=== PATIENT | female | born 1940 | race Caucasian/White ===

== ENCOUNTER → 2016-04-08 | Outpatient (CLI) | payer BC, OTHER ==
[~2016-04-08] MED LIST: ATOR-22 PO; SYN75 PO
[2016-04-09 11:23] LABS: URINE APPEARANCE CLEAR (CLEAR); URINE BILIRUBIN NEG (NEG); URINE COLOR YELLOW; URINE EPITHELIAL CELL AUTO 20-30 /lpf (0-5); URINE NITRITE NEG (NEG); URINE PH 7.5 (4.5-7.5); UROBILINOGEN NEG (NEG)
[2016-04-09 11:34] LABS: MANUAL MICROSCOPIC REQUIRED? NO; REVIEW REQ? NO
== END | disposition home or self-care (01) ==
LOC: C.LABSPEC 10:47
PROVIDERS: ATTEND Nurse Practitioner Adult Health
DX: R35.0 Frequency of micturition (principal)

== ENCOUNTER → 2016-04-28 | Outpatient (CLI) | payer BC ==
--- NOTE | 2016-04-28 22:15 | MYOCARDIAL PERFUSION SCAN ---
ONE-DAY NUCLEAR MEDICINE TECHNETIUM-99M CARDIOLITE MYOCARDIAL PERFUSION SCAN REQUESTING PHYSICIAN: Dr. Rosales. INDICATION: Chest pain. COMPARISON: None. STRESS ECG: Resting EKG showed normal sinus rhythm with no ST abnormalities. The patient exercised for 9 minutes, achieving 96% of maximum predicted heart rate and 10.1 METs. Her blood pressure eric from 140/84-182/72. EKG showed no stress induced ST abnormalities and there were no stress induced arrhythmias. TECHNIQUE: For the stress portion of the study, 31.2 mCi of technetium-99m Cardiolite IV was injected at 9:25 a.m. on 04/28/2016. Fifteen minutes following the injection, imaging of the heart was performed in multiple projections. For the rest portion of the study, 10.9 mCi of technetium-99m Cardiolite was injected IV at 7:30 a.m. One hour following the injection, imaging of the heart was performed in the same projections. FINDINGS: Raw images were reviewed in detail. This was a good technical quality study. There was minimal vertical motion on the rest images. Otherwise, there was no significant gut uptake impairing imaging borders. There was no other pathologic extracardiac uptake. The short axis, vertical long axis, and horizontal long axis images were reviewed in detail. There was normal myocardial perfusion on both stress and rest images with no significant defects. LV function was hyperdynamic with an estimated EF of 91%. LV cavity size was small with end-diastolic volume of 38 mL. There were no regional wall motion abnormalities. IMPRESSION: 1. Negative exercise Cardiolite myocardial perfusion scan for ischemia at 96% of maximum predicted heart rate. No resting perfusion defects. 2. Negative stress EKG. No stress induced arrhythmias. 3. Above average functional capacity. Exercised for 9 minutes, achieving 10 METs with normal hemodynamic response. 4. Small left ventricular cavity size with normal left ventricular function and no regional wall motion abnormalities. [facility]
== END | disposition home or self-care (01) ==
LOC: C.NUCL 06:19
PROVIDERS: ATTEND Internal Medicine Cardiovascular Disease
DX: R07.9 Chest pain, unspecified (principal); E78.00 Pure hypercholesterolemia, unspecified; I25.10 Atherosclerotic heart disease of native coronary artery without angina pectoris

== ENCOUNTER → 2016-06-01 | Outpatient (CLI) | payer BC ==
--- NOTE | 2016-06-01 13:48 | MAMMOGRAPHY REPORT ---
BILATERAL DIGITAL DIAGNOSTIC MAMMOGRAM TOMOSYNTHESIS WITH CAD AND TARGETED LEFT ULTRASOUND: 06/01/2016 CLINICAL HISTORY: 75-year-old woman presents for follow-up in the left breast for a benign appearing solid mass identified in the 2:00 left breast on ultrasound. Also annual bilateral screening mammo gram. History of prior benign right breast biopsy. TECHNIQUE: Breast tomosynthesis in addition to standard 2D mammography was performed. Current study was also evaluated with a Computer Aided Detection (CAD) system. COMPARISON: Comparison is made to exams dated: 12/03/2015 mammogram, 12/03/2015 ultrasound, 06/04/2015 ma mmogram, and 04/10/2013 mammogram - [facility]. BREAST COMPOSITION: There are scattered areas of fibroglandular density in both breasts. FINDINGS: The breast parenchymal pattern is similar to prior exams. A previously observed asymmetry in the superior left breast is less conspicuous on the current mammogram, confirming benignity. Th ere is a stable metallic biopsy marker in the upper outer anterior right breast and stable nodularit y in the superior right breast that appears similar dating back to at least 2009. No new suspicious mass, architectural distortion or cluster of microcalcifications is seen bilaterally. Targeted ultrasound was performed in the 2:00 periareolar left breast to reevaluate the probably yuliet ign isoechoic to slightly hypoechoic solid mass without definite mammographic correlate. It is agai n identified measuring 4.5 x 1.8 x 4.6 mm and is unchanged dating back to 06/04/2015. This could re present a conspicuous fat lobule, benign mass such as a fibroadenoma or stromal fibrosis. Another 1 2 month follow-up targeted ultrasound is recommend to ensure at least 2 years of stability to confir m benignity. There is another small area of probable dense fibroglandular tissue in the adjacent 3: 00 periareolar left breast which is incidentally identified. IMPRESSION: ACR-BI-RADS CATEGORY 3: PROBABLY BENIGN, TARGETED ULTRASOUND ACR-BI-RADS CATEGORY 3: [place] OBABLY BENIGN 1. Stable bilateral mammograms, without mammographic evidence of malignancy. 2. Stable benign-appearing solid mass versus normal fat lobule in the 2:00 periareolar left breast on ultrasound. Another 12 month follow-up diagnostic mammogram and repeat targeted left breast ultr asound is recommended to ensure at least 2 years of stability to confirm benignity. These results and recommendations were discussed with the patient at the time of the exam. She tent atively scheduled the 12 month follow up appointment prior to leaving our department. Approximately 10% of breast cancers are not detected with mammography. A negative mammographic repor t should not delay biopsy if a clinically suggestive mass is present. Yanci Benson M.D. ay/:06/01/2016 13:23:53 Wood Inspector: Nikhil QUINTANILLA(Lazara)(Sharath), [facility] letter sent: Follow Up Recommended 3 BI-RADS Code: ACR-BI-RADS Category 3: Probably Benign Ultrasound BI-RADS: ACR-BI-RADS Category 3: P robably Benign
== END | disposition home or self-care (01) ==
LOC: C.MAMM 08:48
PROVIDERS: ATTEND Family Medicine
DX: N63 Unspecified lump in breast (principal)

== ENCOUNTER → 2016-10-14 | Outpatient (CLI) | payer BC ==
--- NOTE | 2016-10-14 13:25 | DIAGNOSTIC IMAGING REPORT ---
RIGHT HIP UNILATERAL 2 VIEWS HISTORY: 76 years Female M79.604 Pain of right lower extremityPt with worsening RLE pain, Right COMPARISON: Pelvis and left hip radiographs 07/08/2015 TECHNIQUE: Frontal and frog-leg views of the right hip FINDINGS: There is moderate concentric joint space loss about the right hip without significant marginal spurring. Prominent subcortical cystic changes are noted about the femoral head. There is only minimal spurring of the medial femoral head neck junction. There is no acute fracture or dislocation. Soft tissues are unremarkable. IMPRESSION: 1. No acute fracture or dislocation. 2. Moderate concentric joint space loss with subcortical cystic changes throughout the right femoral head. Although this could reflect osteoarthritis, inflammatory arthropathy may have a similar appearance. The above report was generated using voice recognition software. It may contain grammatical, syntax or spelling errors. Electronically signed by: Vazquez Wilkes M.D. 10/14/2016 1:24 PM Dictated Date/Time: 10/14/2016 1:20 PM
--- NOTE | 2016-10-14 13:27 | DIAGNOSTIC IMAGING REPORT ---
L-SPINE MIN 4 VIEWS ROUTINE CLINICAL HISTORY: 76 years-old Female presenting with pain and right lower extremity. TECHNIQUE: Frontal, bilateral oblique, and lateral views of the lumbosacral spine with coned-down lateral view of the lumbosacral junction were obtained. COMPARISON: None. FINDINGS: Grade 1 anterolisthesis of L4 on L5. Anterior vertebral body height loss at L1 with an anterior height of 26 mm in comparison to the posterior height of 35 mm. Intervertebral disc height loss at L1-2 and L2-3 with associated vacuum disc phenomenon. Scoliotic curvature of the lumbar spine. Allowing for the scoliotic curvature of the spine, no significant osseous neural foraminal narrowing. Total right hip arthroplasty. Moderate stool burden throughout the colon. Atherosclerosis No gross pneumoperitoneum. IMPRESSION: 1. Multilevel degenerative changes, including anterolisthesis of L4 on L5. 2. Anterior vertebral body height loss of L1 may indicate compression deformity, age indeterminate. Correlate for point tenderness. Electronically signed by: Praful Ceron M.D. 10/14/2016 1:25 PM Dictated Date/Time: 10/14/2016 1:21 PM
== END | disposition home or self-care (01) ==
LOC: C.RAD1850 13:01
PROVIDERS: ATTEND Family Medicine
DX: M79.604 Pain in right leg (principal)

== ENCOUNTER → 2016-12-15 | Outpatient (CLI) | payer BC | END | disposition home or self-care (01) | LOC: C.MAMM 12:59 | PROVIDERS: ATTEND Family Medicine | DX: M81.0 Age-related osteoporosis without current pathological fracture (principal); S32.000A Wedge compression fracture of unspecified lumbar vertebra, initial encounter for closed fracture; X58.XXXA Exposure to other specified factors, initial encounter ==

== ENCOUNTER → 2017-02-08 | Outpatient (CLI) | payer BC | END | disposition home or self-care (01) | LOC: C.RDSM 11:59 | PROVIDERS: ATTEND Physical Medicine & Rehabilitation Sports Medicine | DX: M25.552 Pain in left hip (principal); Z96.642 Presence of left artificial hip joint ==

== ENCOUNTER 2017-02-21 12:05 | Emergency (ER) | payer BC ==
[~2017-02-21] VITALS: Ht 162.6 cm; Wt 61.6 kg
[2017-02-21 12:07] VITALS: TEMP 36.7; Ht 162.6 cm; Wt 61.6 kg
[2017-02-21] MEDS ORDERED: DEXAMETHASONE **PF** INJ 10 MG/ML VIAL PO STA (12:21)
[2017-02-21] MEDS ORDERED: MIRT15TA3 PO (12:21)
--- NOTE | 2017-02-21 12:21 | EMERGENCY ROOM VISIT NOTE ---
History Report prepared by Moshe: Mikey Girard Under the Supervision of: Dr. Joselito Dozier M.D. 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 Patient has been suffering a cold and cough for the past few days. She has not taken anything for her hives. Positive fevers, chills, cough, congestion. Negative travel, changes in medication, clothes, soaps, detergent, deodorant, recent shaving, alcohol use, tobacco use, drug use. Source of History: patient Onset: this morning Position: other (global) Quality: other (itchy hives) Timing: constant Associated Symptoms: + fevers, + chills, + cough Note: Associated symptoms: congestion Denies: travel, changes in medication, clothes, soaps, detergent, deodorant, recent shaving Review of Systems See HPI for pertinent positives and negatives. A total of ten systems were reviewed and were otherwise negative. Past Medical & Surgical Medical Problems: (1) DJD (degenerative joint disease) of hip (2) Edema (3) Edema (4) Heart disease (5) High cholesterol (6) Osteoporosis Surgical Problems: (1) History of tonsillectomy (2) Status post left hip replacement Family History Diabetes mellitus Social History Smoking Status: Never Smoker Smokeless Tobacco Use: No Alcohol Use: none Drug Use: none Marital Status: Housing Status: lives with family Occupation Status: employed Current/Historical Medications Scheduled Atorvastatin (Lipitor), 20 MG PO DAILY Famotidine (Pepcid), 40 MG PO QD Levothyroxine Sodium (Synthroid), 75 MCG PO DAILY Mirtazapine (Remeron), 15 MG PO HS Prednisone (Prednisone), 50 MG PO DAILY Allergies Coded Allergies: Sulfa Antibiotics (Verified Allergy, Mild, HIVES, 04/12/15) Physical Exam Vital Signs Date Time Temp Pulse Resp B/P (MAP) Pulse Ox O2 Delivery O2 Flow Rate FiO2 02/21/17 14:08 76 16 154/78 97 02/21/17 13:34 76 16 154/78 97 Room Air 02/21/17 12:07 36.7 85 18 156/75 93 Room Air Physical Exam GENERAL: Awake, alert, well-appearing, NAD HENT: Normocephalic, atraumatic. Pharyngeal erythema. No postpharyngeal swelling. no tonsillar or uvular deviation. EYES: Normal conjunctiva. Sclera non-icteric. NECK: Supple. No nuchal rigidity. FROM. RESPIRATORY: CTAB, no rhonchi, wheezing, crackles CARDIAC: RRR, no MRG ABDOMEN: Soft, NTND, BS+ MSK: No chest wall TTP, no LE edema NEURO: GCS 15, CN 2-12 intact, moves all 4s on command SKIN: No jaundice noted. Several blanching wheel like lesions to the bilateral medial thigh and in the flexion portion of the elbow, no drainage or petechiae. Medical Decision & Procedures ER Provider Diagnostic Interpretation: X-ray: Per my interpretation, radiologist review. CHEST ONE VIEW PORTABLE HISTORY: cough COMPARISON: Chest 05/19/2013. FINDINGS: The lungs are hyperexpanded with apical predominant emphysematous changes. Mild interstitial thickening at the lung bases is likely due to vascular crowding from the emphysema. The lungs are otherwise clear. No pleural effusions. No pneumothorax. IMPRESSION: Emphysema. No acute process within the chest. Electronically signed by: Triston Lacy M.D. 02/21/2017 12:58 PM Dictated Date/Time: 02/21/2017 12:54 PM Medications Administered Medications (Trade) Dose Ordered Sig/Briana Route Start Time Stop Time Status Last Admin Dose Admin Dexamethasone Sodium Phosphate (Dexamethasone Inj Pf) 10 mg ONE STAT PO 02/21/17 12:21 02/21/17 12:22 DC 02/21/17 12:34 10 MG Diphenhydramine HCl (Benadryl Cap) 25 mg NOW ONCE PO 02/21/17 12:30 02/21/17 12:31 DC 02/21/17 12:34 25 MG Famotidine (Pepcid Tab) 20 mg NOW ONCE PO 02/21/17 12:30 02/21/17 12:31 DC 02/21/17 12:34 20 MG ED Course 1211: The patient was evaluated in room C07. A complete history and physical exam was performed. 1347: I reevaluated the patient. Discussed results and discharge instructions: she verbalized understanding and agreement. The patient is ready for discharge. Medical Decision The patient is a 76 year old white female with a past medical history of DJD, CAD, HLD, resolved chronic hives who presents to the ED with a cc of constant, itchy, hives beginning this morning. Etiologies such as allergic reaction, anaphylaxis, urticaria, Arroyo-Romulo syndrome, toxic epidermal necrolysis, erythema multiforme, cellulitis, as well as others were entertained. Patient was seen and evaluated the bedside. Patient has had some URI-type symptoms for the last 4-5 days. Patient has had a cough but it is nonproductive and dry. Patient states that she called the on-call physician who referred them here in order take a look at the rash. Patient states no changes a recent creams, detergents, soaps, clothes, or foods. Patient is very well-appearing otherwise. Patient is afebrile vital signs are stable. Patient' s temp posterior pharynx is clear. Patient has no stridor and in the lungs are clear to auscultation bilaterally. Patient does have some blanching pruritic rash to the inner thighs as well as to the axillary areas. Patient was given medications and did have a chest x-ray that was completed. Patient chest x-ray was clear. Patient did not complain of any shortness of breath or chest pain. Patient had lower extremity swelling. Patient's rash was mildly improved although had not totally resolved. Patient was told to come of keep a watchful eye on that she could apply some cordate as well as Benadryl creams. Patient was also told [id number] and symptomatically control at home for her sore throat/URI symptoms and cough. Patient was told that her chest x-ray was clear. Patient was agreeable with this plan of care. Patient was also told that this may be a viral exanthem given her URI-type symptoms. Patient was given strict follow-up, discharge, and return precautions. All questions were answered. Patient was deemed suitable for outpatient follow-up at this time. Patient agreed with the plan of care and was safely discharged home. Medication Reconcilliation Current Medication List: was personally reviewed by me Blood Pressure Screening Patient's blood pressure: Elevated blood pressure Blood pressure disposition: Referred to PCP Impression Primary Impression: Urticaria Additional Impression: Viral exanthem Scribe Attestation The scribe's documentation has been prepared under my direction and personally reviewed by me in its entirety. I confirm that the note above accurately reflects all work, treatment, procedures, and medical decision making performed by me. Departure Information Dispostion Home / Self-Care Prescriptions Famotidine (PEPCID) 40 Mg Tab 40 MG PO QD for 4 Days, #4 TAB Prov: Joselito Dozier M.D. 02/21/17 Prednisone (PREDNISONE) 50 Mg Tab 50 MG PO DAILY for 4 Days, #4 TAB Prov: Joselito Dozier M.D. 02/21/17 Referrals Tania Brennan MD (PCP) Forms HOME CARE DOCUMENTATION FORM, IMPORTANT VISIT INFORMATION, WORK / SCHOOL INSTRUCTIONS Patient Instructions ED Allergic Reaction General Other, ED Upper Resp Infec No Abx Tx, ED Urticaria , [facility] Additional Instructions Please return to the emergency department if you have worsening or recurrent symptoms not amenable to at-home treatment. Please call for a follow-up appointment with her primary care physician. Please take your medications as prescribed. If you have other concerns and/or complaints please feel free to also call your primary care physician's office or return the ED for further evaluation, management, and treatment. You may take 400 mg Ibuprofen every 6 hours as needed for pain with food for no more than 2 consecutive days. You may take tylenol 650 mg every 6 hours as needed for pain. You may take motrin and tylenol separately or at the same time. Take your medications as prescribed. Consider taking her steroids in the morning. He may apply Cortaid or Benadryl cream. For your upper respiratory type symptoms you may try decongestants, saline sprays, and tea with honey and/ or lemon. He may also try saltwater gargles. If her symptoms do not improve in the next 24-48 hours consider returning to the department or following up with her PCP. You have been examined and treated today on an emergency basis only. This is not a substitute for, or an effort to provide, complete comprehensive medical care. It is impossible to recognize and treat all injuries or illnesses in a single emergency department visit. It is therefore important that you follow up closely with [facility], your PCP, and/or your specialist(s). Call as soon as possible for an appointment. Thank you for your time and consideration. I look forward to speaking with you again soon. Please don't hesitate to call us if you have any questions. Problem Qualifiers
[2017-02-21] MEDS ORDERED: FAMOTIDINE 20 MG TAB PO ONE (12:30)
--- NOTE | 2017-02-21 13:00 | DIAGNOSTIC IMAGING REPORT ---
CHEST ONE VIEW PORTABLE HISTORY: cough COMPARISON: Chest 05/19/2013. FINDINGS: The lungs are hyperexpanded with apical predominant emphysematous changes. Mild interstitial thickening at the lung bases is likely due to vascular crowding from the emphysema. The lungs are otherwise clear. No pleural effusions. No pneumothorax. IMPRESSION: Emphysema. No acute process within the chest. Electronically signed by: Triston Lacy M.D. 02/21/2017 12:58 PM Dictated Date/Time: 02/21/2017 12:54 PM
[2017-02-21] MEDS ORDERED: FAMO40TA6 PO (14:02)
[2017-02-21] MEDS ORDERED: PRED50TA PO (14:02)
[2017-02-21 14:08] VITALS: BP 154/78; PULSE 76; O2SAT 97
== END 2017-02-21 14:09 | disposition home or self-care (01) ==
LOC: C.EDB 12:06 → C.EDC 14:09
DX: L50.9 Urticaria, unspecified (principal); B09 Unspecified viral infection characterized by skin and mucous membrane lesions; E78.5 Hyperlipidemia, unspecified; R40.2412 Glasgow coma scale score 13-15, at arrival to emergency department; R03.0 Elevated blood-pressure reading, without diagnosis of hypertension; Z83.3 Family history of diabetes mellitus

== ENCOUNTER → 2017-06-02 | Outpatient (CLI) | payer BC ==
[~2017-06-02] MED LIST changes: +MIRT15TA3 PO
--- NOTE | 2017-06-03 08:03 | MAMMOGRAPHY REPORT ---
BILATERAL DIGITAL DIAGNOSTIC MAMMOGRAM TOMOSYNTHESIS WITH CAD AND TARGETED LEFT ULTRASOUND: 06/02/2017 CLINICAL HISTORY: 76-year-old woman presents at time of annual exam and also close follow-up of an as ymmetry in the superior right breast on the MLO view. Reassess prominent fat lobule versus benign-ap pearing mass in the 2:00 periareolar left breast on ultrasound. TECHNIQUE: Bilateral breast tomosynthesis in addition to standard 2D mammography was performed. Curre nt study was also evaluated with a Computer Aided Detection (CAD) system. COMPARISON: Comparison is made to exams dated: 06/01/2016 mammogram, 06/01/2016 ultrasound, 12/03/2015 [place] mogram, 12/03/2015 ultrasound, 06/04/2015 mammogram, and 05/28/2015 mammogram - [facility] BREAST COMPOSITION: There are scattered areas of fibroglandular density in both breasts. FINDINGS: An asymmetry in the superior, middle one third of the right breast on the MLO view is less prominent comparing to the 2016 mammograms, and also appears very similar to the prior 2013, 2012 and 2011 exams, suggesting normal fibroglandular tissue. There is a stable metallic biopsy marker clip in the upper outer anterior right breast. Minimal vascular calcification in the breasts. No new harriet picious mass, architectural distortion or cluster of microcalcifications is seen. Repeat targeted ultrasound was performed in the 2:00 periareolar left breast. An oval parallel circu mscribed slightly hypoechoic benign-appearing mass versus fat lobule is again identified, measuring 4 .6 x 2.1 x 4.0 mm. This has not significantly changed dating back to at least June 04, 2015, and wit h 2 years of stability is considered benign. IMPRESSION: ACR BI-RADS CATEGORY 2: BENIGN, TARGETED ULTRASOUND ACR BI-RADS CATEGORY 2: BENIGN Less prominent asymmetry in the superior right breast on the MLO view, and stable benign-appearing pr ominent fat lobule versus mass in the 2:00 periareolar left breast on ultrasound. There is no mammog raphic or targeted sonographic evidence of malignancy. Return to annual mammogram screening schedule is recommended. The patient has been verbally notified of the results. Approximately 10% of breast cancers are not detected with mammography. A negative mammographic report should not delay biopsy if a clinically suggestive mass is present. Yanci Benson M.D. ay/:06/02/2017 08:31:59 Psychiatry Teacher: Alice QUINTANILLA(R)(M), [facility] letter sent: Normal 1/2 BI-RADS Code: ACR BI-RADS Category 2: Benign Ultrasound BI-RADS: ACR BI-RADS Category 2: Benign
== END | disposition home or self-care (01) ==
LOC: C.MAMM 08:00
PROVIDERS: ATTEND Family Medicine
DX: R92.8 Other abnormal and inconclusive findings on diagnostic imaging of breast (principal); N64.89 Other specified disorders of breast

== ENCOUNTER → 2017-06-14 | Outpatient (CLI) | payer BC | END | disposition home or self-care (01) | LOC: C.RDSM 07:50 | PROVIDERS: ATTEND Physical Medicine & Rehabilitation Sports Medicine | DX: M16.9 Osteoarthritis of hip, unspecified (principal); Z96.642 Presence of left artificial hip joint ==

== ENCOUNTER → 2017-08-02 | Outpatient (CLI) | payer BC ==
--- NOTE | 2017-08-02 12:23 | DIAGNOSTIC IMAGING REPORT ---
L HUMERUS MIN 2 VIEWS ROUTINE CLINICAL HISTORY: 77 years-old Female presenting with M25.532 left humerus pain, fall injury, twisting injury. TECHNIQUE: Frontal and lateral views of the left humerus were obtained. COMPARISON: None. FINDINGS: Sclerotic rim lesion in the left humeral head with a nonaggressive appearance. Glenohumeral and elbow joints grossly congruent. No acute fracture or malalignment. No advanced degenerative change. No radiographic soft tissue abnormality. No gross evidence of an elbow joint effusion. IMPRESSION: 1. No acute osseous injury. 2. Nonaggressive appearing lesion in the left humeral head. Electronically signed by: Praful Ceron M.D. 08/02/2017 12:21 PM Dictated Date/Time: 08/02/2017 12:19 PM
--- NOTE | 2017-08-02 12:24 | DIAGNOSTIC IMAGING REPORT ---
L WRIST MIN 3 VIEWS ROUTINE CLINICAL HISTORY: 77 years-old Female presenting with M25.532. TECHNIQUE: Frontal, oblique, and lateral views of the left wrist were obtained. COMPARISON: None. FINDINGS: Osteopenia. Cystic changes of the base of the first metacarpal, degenerative in etiology. No acute fracture or malalignment. No advanced degenerative change. No radiographic soft tissue abnormality. IMPRESSION: No acute osseous injury. Electronically signed by: Praful Ceron M.D. 08/02/2017 12:23 PM Dictated Date/Time: 08/02/2017 12:22 PM
== END | disposition home or self-care (01) ==
LOC: C.RADBC 11:46
PROVIDERS: ATTEND Family Medicine
DX: M25.532 Pain in left wrist (principal)

== ENCOUNTER 2018-05-31 06:12 | Inpatient (IN) ==
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
--- NOTE | 2018-05-12 13:45 | PAT Medication Instructions ---
Medication Instructions Date of Service May 12, 2018 Home Medications alendronate 1 tab PO WK cholecalciferol (vitamin D3) 1,000 unit PO BID levothyroxine 50 mcg PO QAM paroxetine HCl [Paxil] 40 mg PO QAM atorvastatin 20 mg PO HS Continue as directed alendronate 1 tab PO WK DO NOT take the morning of surgery cholecalciferol (vitamin D3) 1,000 unit PO BID Take morning of surgery With a small sip of water, OTHERWISE NOTHING TO EAT OR DRINK AFTER MIDNIGHT: levothyroxine 50 mcg PO QAM paroxetine HCl [Paxil] 40 mg PO QAM Take evening before surgery atorvastatin 20 mg PO HS cholecalciferol (vitamin D3) 1,000 unit PO BID Other Notes If you have any questions please call us at [phone] or [phone] or [phone] or [phone]
--- NOTE | 2018-05-12 14:20 | XRay Report ---
XR chest Pre-admission PA/Lat CLINICAL HISTORY: Preoperative chest COMPARISON STUDY: 02/21/2017 FINDINGS: The heart is normal in size. The patient is hyperinflated. There is no focal pulmonary cons olidation. There are no pleural effusions. Bilateral nodular opacities, are felt to relate to bilater al healing rib fractures. Please correlate with any history of trauma.[ IMPRESSION: 1. There are bilateral opacities which likely relate to overlying healing rib fractures. Please corre late with any history of prior trauma 2. No evidence of failure. No evidence of lobar consolidation. 3. Hyperexpansion Electronically signed by: Jose Figueroa M.D. 05/12/2018 2:19 PM
[2018-05-12 14:24] LABS: Basophils # (auto) 0.01 K/uL (0-0.2); Basophils % (auto) 0.2 %; Eosinophils # (auto) 0.14 K/uL (0-0.5); Eosinophils % (auto) 2.3 %; Hematocrit (blood only) 43.6 % (37-47); Hemoglobin 15.2 g/dL (12.0-16.0); Immature Granulocytes # (auto) 0.01 K/uL (0.00-0.02); Immature Granulocytes % (auto) 0.2 %; Lymphocytes # (auto) 2.16 K/uL (1.2-3.4); Lymphocytes % (auto) 35.9 %; Mean Corpuscular Hgb Conc 34.9 g/dL (32-36); Mean Corpuscular Volume 90.8 fL (80-100); Mean Platelet Volume 9.4 fL (7.4-10.4); Monocytes # (auto) 0.76 K/uL (0.11-0.59); Monocytes % (auto) 12.6 %; Neutrophils # (auto) 2.94 K/uL (1.4-6.5); Neutrophils % (auto) 48.8 %; Platelet Count 195 K/uL (130-400); RDW Coefficient of Variation 13.4 % (11.5-14.5); White Blood Count 6.02 K/uL (4.8-10.8)
[2018-05-12 14:35] LABS: Partial Thromboplastin Ratio 1.5; Partial Thromboplastin Time 37.8 Seconds (21.0-31.0); Prothrombin Time 10.5 Seconds (9.0-12.0)
[2018-05-12 15:25] LABS: BUN Creatinine Ratio 24.1 (10-20); Calcium 9.1 mg/dl (8.5-10.1); Est GFR (African American) 85.6; Est GFR (Non-African American) 73.8; Potassium 4.1 mmol/L (3.5-5.1)
[~2018-05-31 06:12] MED LIST changes: +ACETAMINOPHEN 500 MG TAB PO SCH; -ATOR-22 PO; +CEFAZOLIN 2000MG 2,000 MG/15 ML SYR IV SCH; +FAMOTIDINE 20 MG TAB PO SCH; +GABAPENTIN 300 MG PO SCH; +LR 500ML BOLUS, THEN 15ML/HR IV SCH; +LR 60ML/HR IV SCH; -MIRT15TA3 PO; +ROPIVACAINE 0.5% HCL/PF 150 MG, BUPIVACAINE 0.5% MPF 30 ML, EPINEPHrine 30MG/30ML (OR U... INFIL SCH; -SYN75 PO; +TRANEXAMIC ACID 1,000 MG **IV Pre-op IV SCH
[2018-05-31] MEDS ORDERED: BUPIVACAINE 0.5 % 5 MG/1 ML PF 10ML VIAL ONE (06:19)
--- NOTE | 2018-05-31 06:22 | History & Physical Report ---
Date of Service May 31, 2018 Assessment & Plan (1) Osteoarthritis of right hip: We will proceed with a right anterior total hip arthroplasty. I did speak with her veterinary virologist about her lupus anticoagulant disorder. We will place her on Lovenox 40 mg subcu for 4 weeks postoperatively. After the procedure she will be kept overnight at the hospital for postop medical management. She plans to use energy physical therapy upon discharge. Present on Admission?: Yes History of Present Illness Chief Complaint: Primary osteoarthritis of the right hip Primary Care Provider: Tania Brennan MD Soraya is a pleasant 77-year-old female who is been doing with chronic increasing bilateral hip pain. MRI of her hip showed advanced osteoarthritis. She eventually underwent a left total hip arthroplasty about 4 years ago by another provider. She did fairly well with that. Unfortunately she still h aving a lot of right hip pain. X-rays have shown advanced osteoarthritis of the right hip. After failing conservative treatment, she is elected proceed with a right total hip arthroplasty. Allergies Allergy/AdvReac Type Severity Reaction Status Date / Time Sulfa (Sulfonamide Allergy Mild HIVES Verified 05/06/18 14:52 Antibiotics) Home Medications Home Medications Medication Instructions Recorded Confirmed Type alendronate 1 tab PO WK 05/06/18 05/06/18 History cholecalciferol (vitamin D3) 1,000 unit PO BID 05/06/18 05/06/18 History [Vitamin D3] levothyroxine 50 mcg PO QAM 05/06/18 05/06/18 History paroxetine HCl [Paxil] 40 mg PO QAM 05/06/18 05/06/18 History atorvastatin 20 mg PO HS 05/12/18 05/12/18 History Past Med/Surg History Medical History Anxiety CAD (coronary artery disease) "Presumed coronary disease" since positive stress test in 2011. Had a negative nuke stress in 2017 at 96% MPHR. Chronic obstructive pulmonary disease MILD (FOUND ON CXR 4 YEARS AGO) Elevated partial thromboplastin time (PTT) Found on pre-op for ROBI 4 years ago. Per oncology consultation 07/13/16, + lupus anticoagulant. Patient had SAB. Hyperlipidemia Hypothyroidism Lupus anticoagulant disorder Surgeon aware for post-op thrombosis mgmt Osteoarthritis Osteoporosis Surgical History History of cataract surgery RT/LEFT History of colonoscopy History of laparoscopy IUD REMOVAL AFTER PERFORATED UTERUS History of tonsillectomy History of tooth extraction History of total hip arthroplasty LEFT HIP Family History Grandmother (Maternal) Family history of diabetes mellitus Social History Preferred Language: Hebrew Communication Ability: Effective Signal Intelligence Analyst Required: No Beliefs That Will Affect Care: None Current Living Situation: Spouse Other Information That Helps Us Care for You: No Feels Safe at Home: Yes Safety Concerns: Feels Safe At This Time Smoking Status: Never smoker Hx Alcohol Use: No Hx Substance Use: No Review of Systems All systems reviewed & are unremarkable except as noted in HPI & below Physical Exam Constitutional: WD/WN, vitals as above Eyes: PERRL, conjunctivae normal, anicteric sclerae ENMT: external ear and nose normal, oropharynx normal Neck: trachea midline, no thyromegaly Respiratory: normal respiratory effort Cardiovascular: RRR, no murmur, no edema Gastrointestinal (Abdomen): normal bowel sounds, soft, nontender, no hepatosplenomegaly Musculoskeletal: Physical examination of the right hip reveals decreased range of motion with flexion, internal and external rotation. There is significant groin pain with forced internal rotation of the hip his leg lengths are essentially equal. Psychiatric: A+Ox3, euthymic affect Results & Data Diagnostic Findings Radiographs of the right hip and pelvis demonstrate advanced osteoarthritis with joint space narrowing osteophyte formation and [id number] articulation.
--- NOTE | 2018-05-31 06:25 | History & Physical Bridge Note ---
Date of Service May 31, 2018 History & Physical Bridge Note I have examined the patient, reviewed the History & Physical and in the interval since the performance of the History & Physical I have noted the following changes of clinical significance: no changes noted
[2018-05-31] MEDS ORDERED: TRANEXAMIC ACID 1,000 MG **IV Intra-op IV SCH (06:30)
[2018-05-31 06:56] LABS: Partial Thromboplastin Ratio 1.4; Partial Thromboplastin Time 38.2 Seconds (21.0-31.0)
[2018-05-31] MEDS ORDERED: MIDAZOLAM HCL 1 MG/ML 2ML VIAL ONE ×2 (07:29→08:26)
[2018-05-31] MEDS ORDERED: PROPOFOL IV EMULSION 10 MG/ML 20 ML VIAL IV ONE ×2 (07:29→10:42)
[2018-05-31] MEDS ORDERED: fentaNYL citrate 100 MCG/2 ML VIAL ONE (07:29)
[2018-05-31] MEDS ORDERED: POVIDONE-IODINE OP SOLN 30 ML BTL ONE (09:03)
[2018-05-31] MEDS ORDERED: ORTHO JOINT ANESTHETIC ONE (09:03)
[2018-05-31] MEDS ORDERED: ONDANSETRON INJ 2 MG/ML 2 ML VIAL IV PRN ×2 (09:38→13:21)
[2018-05-31] MEDS ORDERED: ATROPINE SULFATE 0.1 MG/ML 10ML SYR IV PRN (09:38)
[2018-05-31] MEDS ORDERED: KETOROLAC 30 MG/ML VIAL IV PRN (09:38)
[2018-05-31] MEDS ORDERED: PHENYLEPHRINE 100MCG/ML 5ML SYR IV PRN (09:38)
[2018-05-31] MEDS ORDERED: ePHEDrine sulfate 50 MG/ML AMP IV PRN (09:38)
[2018-05-31] MEDS ORDERED: HYDROmorphone INJ 1 MG/ML SYRINGE IV PRN (09:38)
--- NOTE | 2018-05-31 12:02 | Operative Report ---
Post Operative Report Pre & Post Diagnosis Operation Date: 05/31/18 08:50 Pre-Op Diagnosis: Right Hip Degenerative Joint Disease Post-Op Diagnosis: Right Hip Degenerative Joint Disease Procedure Operation Date: 05/31/18 08:50 Actual Procedures p cemented right Anterior Total Hip Arthroplasty, Intraop cabling of right femur fracture.(Right) - Dmitriy Reeves DO Surgeon Dmitriy Reeves DO Clutch Specialist Dmitriy Guaman PAC Estimated Blood Loss 300 Findings Consistent with Post-Op Diagnosis Specimens Right femoral head Complications After the final Taperloc implant was impacted in the place I noticed a small fracture in the lateral wall of the femur. I decided to remove the Taperloc stem and cable the fracture. I then placed a long cemented stem for better support and stability. Disposition Disposition: Recovery Room Indications Soraya is a pleasant 77-year-old female who presented my office with chronic increasing right hip and groin pain. X-rays and clinical examination were diagnostic for primary also arthritis of the right hip. After failing conservative treatment, she elected proceed with a right total hip arthroplasty. Description of Procedure Implants used Biomet CRC cemented total hip arthroplasty system with a size 13 x 170 CRC cemented stem, a 46 mm G7 cup with a 25mm screw, an E1 polyethylene liner, a 32 mm ceramic head with a -3.5 neck. Patient arrived at the hospital for the above procedure. They were seen in the preoperative holding area and the operative extremity was identified and signed. They were given a spinal anesthetic. They were given a preoperative antibiotic and TXA. They were taken back To the operating room and laid on the table in the supine position. The leg was brought out through a Puristst leg positioner. The hip was then prepped and draped in sterile fashion. A timeout was done and the patient in upper extremities properly identified. An anterior approach was used. Dissection was taken down through the fascia and the tensor muscle belly was retracted laterally and the rectus was retracted medially. The circumflex vessels were identified and ligated. The capsule was then incised and tagged for later repair. The femoral neck was then cut and the femoral head was removed. The acetabulum was exposed. Time was spent doing a complete circumferential labral release. Sequential reaming of the acetabulum up to a size 45 reamer was done. Final reamings were done under fluoroscopy to ensure appropriate version. A Biomet 46 mm G7 cup was then impacted into place. A single 25 mm screw was placed. The E1 polyethylene liner was then snapped into place. Surrounding soft tissues were then injected with 100 cc of an orthopedic pain control cocktail. The proximal femur was then exposed. Sequential broaching up to a size 9 broach was done. Off that broach a size 32 head with a -3 neck was trialed. The hip was reduced and fluoroscopic images showed anatomic alignment of the implants in acceptable length. The broach was removed. The final size 9 Taperloc stem was then impacted into place. Unfortunately the size 9 stem subsided. I did not hit the stem very hard she had very weak bone quality. I reduce the hip. On fluoroscopic imaging I noticed a very small fracture in the lateral wall. Once I noticed this I was not happy with the overall stability. I removed the size 9 Taperloc stem. At this point I decided to cable the fracture and cement the prosthesis. 2 Eliot cables were placed around the fracture site. A size 13 x 170 CRC stem was then cemented in place with Palacos G cement. Meticulous antonio enting technique was used. A trial -3.5 head was used. The hip was reduced. I was happy with the overall stability and reduction. The hip was then dislocated and a final 32 ceramic head with a -3.5 neck was then impacted into place. The hip was reduced. Final fluoroscopic images showed anatomic alignment. The capsule was then closed with #1 Vicryl suture. A dilute betadyne lavage was th en done for 3 minutes. The joint was then irrigated with normal saline solution. The fascia was closed with #1 PDS suture. Skin was closed with 2-0 Vicryl, tab, and a Floresita VAC dressing. The patient was then transferred to a hospital bed and taken to the post anesthesia care unit in stable condition. They tolerated the procedure well. I attest to the content of the Intraoperative Record and any orders documented therein. Any exceptions are noted below.
--- NOTE | 2018-05-31 12:37 | Anesthesiology Progress Note ---
Date of Service May 31, 2018 Anesthesia Post Procedure Vital Signs Vital Signs: Temp Pulse Pulse Resp BP Pulse Ox 05/31/18 12:25 56 L 16 131/64 100 05/31/18 12:17 36.0 C L 65 16 123/56 L 100 05/31/18 06:30 36.5 C 76 18 155/72 H 99 Notes Mental Status: alert / awake / arousable Patient Amnestic to Procedure: Yes Nausea / Vomiting: adequately controlled Pain: adequately controlled Airway Patency, RR, SpO2: stable & adequate BP & HR: stable & adequate Hydration State: stable & adequate Anesthetic Complications: no major complications apparent
--- NOTE | 2018-05-31 13:09 | XRay Report ---
XR hip 1V RT w pelvis CLINICAL HISTORY: IN PACU - A/P PELVIS and LATERAL HIP COMPARISON: 03/07/2018 DISCUSSION: Anatomic alignment post total right hip arthroplasty. Circumferential wires traverse the proximal femoral metaphysis expected postoperative soft tissue change. IMPRESSION: Anatomic alignment post total right hip arthroplasty. The above report was generated using voice recognition software. It may contain grammatical, syntax or spelling errors. Electronically signed by: Guanako Horton M.D. 05/31/2018 1:08 PM
[2018-05-31] MEDS ORDERED: METOCLOPRAMIDE HCL INJ 5 MG/ML 2 ML VIAL IV PRN (13:21)
[2018-05-31] MEDS ORDERED: SODIUM CHLORIDE 0.9% 1000ML 1,000 ML IV SCH (13:21)
[2018-05-31] MEDS ORDERED: BISACODYL 10 MG SUPP PR PRN (13:21)
[2018-05-31] MEDS ORDERED: OXYCODONE HCL IR 5 MG TAB (IMMEDIATE RELEASE) PO PRN (13:21)
[2018-05-31] MEDS ORDERED: HYDROmorphone INJ 0.5 MG/0.5 ML SYR IV PRN (13:21)
[2018-05-31] MEDS ORDERED: NALOXONE HCL 0.4 MG/1 ML VIAL/CARP IV PRN (13:21)
[2018-05-31] MEDS ORDERED: MAGNESIUM HYDROXIDE SUSP 30 ML UDC PO PRN (13:21)
--- NOTE | 2018-05-31 13:24 | Fluoroscopy Report ---
FL hip RT 1V CLINICAL HISTORY: Right hip prosthesis. COMPARISON STUDY: Right hip 03/07/2018. FLUOROSCOPY TIME: 36 seconds. FINDINGS: 2 fluoroscopic spot images of the right hip demonstrated right total hip arthroplasty. The hardware is intact. No fracture or dislocation. IMPRESSION: Fluoroscopy provided for right total hip arthroplasty. Electronically signed by: Triston Lacy M.D. 05/31/2018 1:23 PM
[2018-05-31] MEDS: ACETAMINOPHEN 500 MG TAB PO SCH (15:19)
[2018-05-31] MEDS: KETOROLAC TROMETHAMINE 15 MG/ML VIAL IV SCH ×2 (15:19→20:35)
[2018-05-31] MEDS ORDERED: CEFAZOLIN 1000MG 1,000 MG/7.5 ML SYR IV SCH (18:00)
[2018-05-31] MEDS: CHOLECALCIFEROL 1,000 UNITS TAB PO SCH (20:35)
[2018-05-31] MEDS: DOCUSATE SODIUM 100 MG CAP PO SCH (20:35)
[2018-05-31] MEDS ORDERED: ATORVASTATIN 20 MG TAB PO SCH (21:00)
[2018-05-31] MEDS ORDERED: SENNA 8.6 MG TAB PO SCH (21:00)
[2018-06-01] MEDS: ACETAMINOPHEN 500 MG TAB PO SCH ×2 (00:26→08:41)
[2018-06-01] MEDS: KETOROLAC TROMETHAMINE 15 MG/ML VIAL IV SCH ×2 (05:48→10:53)
[2018-06-01] MEDS ORDERED: LEVOTHYROXINE SODIUM 50 MCG TABLET PO SCH (06:30)
[2018-06-01 06:47] LABS: Eosinophils # (auto) 0.08 K/uL (0-0.5); Eosinophils % (auto) 0.8 %; Hematocrit (blood only) 35.1 % (37-47); Hemoglobin 12.1 g/dL (12.0-16.0); Immature Granulocytes # (auto) 0.02 K/uL (0.00-0.02); Immature Granulocytes % (auto) 0.2 %; Lymphocytes # (auto) 1.87 K/uL (1.2-3.4); Lymphocytes % (auto) 19.7 %; Mean Corpuscular Volume 90.9 fL (80-100); Mean Platelet Volume 9.4 fL (7.4-10.4); Monocytes # (auto) 1.01 K/uL (0.11-0.59); Monocytes % (auto) 10.7 %; Neutrophils # (auto) 6.49 K/uL (1.4-6.5); Neutrophils % (auto) 68.6 %; Platelet Count 134 K/uL (130-400); RDW Coefficient of Variation 13.3 % (11.5-14.5); Red Blood Count 3.86 M/uL (4.2-5.4); White Blood Count 9.47 K/uL (4.8-10.8)
[2018-06-01 06:54] LABS: Mean Corpuscular Hgb Conc 34.5 g/dL (32-36)
[2018-06-01 06:54] LABS: BUN Creatinine Ratio 17.5 (10-20); Calcium 8.3 mg/dl (8.5-10.1); Creatinine Clr Calc Pharmacy 48.6 ml/min; Est GFR (African American) 77.1; Est GFR (Non-African American) 66.6; Potassium 3.9 mmol/L (3.5-5.1)
--- NOTE | 2018-06-01 07:18 | Orthopedic Progress Note ---
Date of Service June 01, 2018 Assessment & Plan (1) Osteoarthritis of right hip: Overall she is doing very well. She is having little to no pain in the right hip. She can be weightbearing as tolerated. She will be seen by physical therapy today. As long she is doing well she can be discharged home with energy physical therapy. She will follow-up with orthopedics in 2 weeks. Present on Admission?: Yes Iftikhar Lira was seen and examined at bedside this morning. Overall she is doing very well. She is having little to no pain in her right hip. She is been up and ambulating to the bathroom. She has no complaints. I did tell her that there was a small intraoperative fracture. It was fixed with cables and a cemented prosthesis. It should not make any difference in her recovery. She understands this. Physical Exam Vital Signs (Past 24 Hours): Last Vital Signs Temp 36.7 C 06/01/18 04:00 Pulse 66 06/01/18 04:00 Resp 16 06/01/18 04:00 BP 122/65 06/01/18 04:00 Pulse Ox 99 06/01/18 04:00 Musculoskeletal: On physical examination of the right hip, the Floresita VAC dressing is to suction. Her leg lengths are equal. She is active dorsiflexion and plantarflexion of her right ankle. Sensation is intact. Results & Data Laboratory Results H & H 05/12/18 06/01/18 06/01/18 Range/Units 13:53 05:35 06:37 Hgb 15.2 Cancelled 12.1 (12.0-16.0) g/dL Hct 43.6 Cancelled 35.1 L (37-47) % Coagulation 05/12/18 Range/Units 13:53 INR 1.0 (0.9-1.1) Diagnostic Findings Postoperative x-rays of the right hip show the prosthesis to be in anatomic alignment. There is a small fracture in the femur that was fixed with a cable. There is a well fixed cemented stem.
--- NOTE | 2018-06-01 07:20 | Discharge Summary ---
Date of Service June 01, 2018 Admission HPI Per Admitting Provider Soraya is a pleasant 77-year-old female who is been doing with chronic increasing bilateral hip pain. MRI of her hip showed advanced osteoarthritis. She eventually underwent a left total hip arthroplasty about 4 years ago by another provider. She did fairly well with that. Unfortunately she still having a lot of right hip pain. X-rays have shown advanced osteoarthritis of the right hip. After failing conservative treatment, she is elected proceed with a right total hip arthroplasty. Specialty Data Orthopedic H & H 05/12/18 06/01/18 06/01/18 Range/Units 13:53 05:35 06:37 Hgb 15.2 Cancelled 12.1 (12.0-16.0) g/dL Hct 43.6 Cancelled 35.1 L (37-47) % Coagulation 05/12/18 Range/Units 13:53 INR 1.0 (0.9-1.1) Discharge Data Consultations 06/01/18 08:00 Consult Case Management - Discharge Planning Routine Procedures Performed Operation Date: 05/31/18 08:50 Actual Procedures p Right Anterior Total Hip Arthroplasty, Cabling of intraop femur fracture, right.(Right) - Dmitriy Reeves DO Hospital Course (1) Osteoarthritis of right hip: On May 31, 2018 Soraya arrived at [facility] in the hospital and underwent a right anterior total hip arthroplasty. There was a small intraoperative fracture that was fixed with a cable. It will not make any difference in her postoperative recovery. She was then discharged to general orthopedic floors. She was started on Lovenox 40 mg daily for DVT prophylaxis for 4 weeks. She has an lupus antibody. Her hospital course was uneventful. On postop day #1 her H&H was stable and her pain was well controlled. She was ambulating very well with physical therapy. She was then discharged home. She will follow-up with orthopedics in 2 weeks. Discharge Instructions Home Medications Medication Instructions Recorded Confirmed alendronate 1 tab PO WK 05/06/18 05/31/18 cholecalciferol (vitamin D3) 1,000 unit PO BID 05/06/18 05/31/18 [Vitamin D3] levothyroxine 50 mcg PO QAM 05/06/18 05/31/18 paroxetine HCl [Paxil] 40 mg PO QAM 05/06/18 05/31/18 atorvastatin 20 mg PO HS 05/12/18 05/31/18 Previous Rx's Medication Instructions Recorded enoxaparin 40 mg SUBCUT Q24H 28 Days #11.2 ml 06/01/18 oxycodone 5 - 10 mg PO Q4H PRN #40 tab 06/01/18
[2018-06-01] MEDS ORDERED: ENOXAPARIN INJ 40 MG/0.4 ML SYR SQ SCH (08:00)
--- NOTE | 2018-06-01 08:33 | Anesthesiology Progress Note ---
Date of Service June 01, 2018 Anesthesia Post Procedure Vital Signs Vital Signs: Temp Pulse Pulse Resp BP BP Pulse Ox 06/01/18 07:57 36.5 C 67 16 158/68 H 100 06/01/18 04:00 36.7 C 66 16 122/65 99 05/31/18 23:45 36.7 C 63 16 111/63 96 05/31/18 18:55 36.4 C L 72 16 132/70 99 05/31/18 15:15 36.5 C 66 16 112/64 100 05/31/18 14:30 67 18 121/73 100 05/31/18 13:45 56 L 18 143/79 H 100 05/31/18 13:15 36.4 C L 56 L 14 134/75 99 05/31/18 13:00 36.6 C 55 L 16 125/63 100 05/31/18 12:45 57 L 16 110/53 L 100 05/31/18 12:35 55 L 16 133/59 L 100 05/31/18 12:25 56 L 16 131/64 100 05/31/18 12:17 36.0 C L 65 16 123/56 L 100 Pain Intensity Right Hip: Pain Intensity: 6 Notes Mental Status: alert / awake / arousable and participated in evaluation Patient Amnestic to Procedure: Yes Nausea / Vomiting: adequately controlled Pain: adequately controlled Airway Patency, RR, SpO2: stable & adequate BP & HR: stable & adequate Hydration State: stable & adequate Neuraxial Anesthesia: was administered and sensory block resolved Anesthetic Complications: no major complications apparent and Pt Satisfied with anesthetic care
[2018-06-01] MEDS: CHOLECALCIFEROL 1,000 UNITS TAB PO SCH (08:41)
[2018-06-01] MEDS: DOCUSATE SODIUM 100 MG CAP PO SCH (08:42)
[2018-06-01] MEDS ORDERED: PARoxetine HCl 20 MG TAB PO SCH (09:00)
[2018-06-01] MEDS ORDERED: MULTIVITAMIN TAB PO SCH (09:00)
== END 2018-06-01 13:04 | disposition home or self-care (01) | DRG 470 ==
LOC: ASU 06:12 → 3E 12:05

== ENCOUNTER 2019-10-11 03:42 | Inpatient (IN) ==
[2019-10-11] MEDS ORDERED: ASPIRIN CHEW 324 MG PO STA (03:43)
[2019-10-11] MEDS ORDERED: fentaNYL citrate 100 MCG/2 ML VIAL IV ONE (03:50)
[2019-10-11] MEDS: NITROGLYCERIN SL 0.4 MG/TAB TAB SL PRN ×3 (03:54→05:27)
[2019-10-11] MEDS ORDERED: OPTIRAY 320 125ml IV PRN (04:01)
[2019-10-11 04:03] LABS: Hemoglobin 15.7 g/dL (12.0-16.0); Mean Corpuscular Hemoglobin 31.7 pg (25-34); Mean Corpuscular Hgb Conc 34.9 g/dL (32-36); Mean Corpuscular Volume 90.9 fL (80-100); Mean Platelet Volume 9.8 fL (7.4-10.4); Platelet Count 233 K/uL (130-400); RDW Coefficient of Variation 13.7 % (11.5-14.5); RDW Standard Deviation 45.3 fL (36.4-46.3); Red Blood Count 4.95 M/uL (4.2-5.4); White Blood Count 10.58 K/uL (4.8-10.8)
[2019-10-11 04:15] LABS: Partial Thromboplastin Ratio 1.1; Partial Thromboplastin Time 31.9 Seconds (21.0-31.0); Prothrombin Time 10.8 Seconds (9.0-12.0)
[2019-10-11 04:29] LABS: Albumin Level 3.8 gm/dl (3.4-5.0); BUN Creatinine Ratio 17.2 (10-20); Creatinine Clr Calc Pharmacy 43.5 ml/min; Est GFR (African American) 65.7; Est GFR (Non-African American) 56.6
[2019-10-11] MEDS ORDERED: fentaNYL citrate 100 MCG/2 ML VIAL IV STA (04:36)
[2019-10-11] MEDS ORDERED: HEPARIN SOD 5,000 UNIT/0.5 ML VIAL ONE (04:41)
[2019-10-11 04:43] LABS: Bilirubin,Total 0.5 mg/dl (0.2-1); Globulin 3.8 gm/dl (2.5-4.0); Total Protein 7.6 gm/dl (6.4-8.2); Troponin I 2.18 ng/ml (0-0.045)
[2019-10-11] MEDS ORDERED: HEPARIN SODIUM/DEXTROSE 25,000 UNITS/500 ML BAG IV SCH (04:45)
[2019-10-11 04:56] LABS: ALC (manual) 6.03 K/uL (1.2-3.4); ANC (manual) 3.34 K/uL (1.4-6.5); Eosinophils # (manual) 0.28 K/uL (0-0.5); Eosinophils % (manual) 2.6 %; Large Granular Lymph # (manua 3.06 K/uL; Large Granular Lymph % (manual) 28.9 %; Lymphocytes # (manual) 2.97 K/uL (1.2-3.4); Lymphocytes % (manual) 28.1 %; Monocytes # (manual) 0.93 K/uL (0.11-0.59); Monocytes % (manual) 8.8 %; Neutrophils # (manual) 3.34 K/uL (1.4-6.5); Neutrophils % (manual) 31.6 %; RBC Morphology Unremarkable
[2019-10-11] MEDS ORDERED: NITROGLYCERIN 2% OINTMENT 30GM TUBE ONE (05:00)
[2019-10-11] MEDS: NITROGLYCERIN 2% OINTMENT 30GM TUBE EXT SCH ×2 (05:02→14:04)
[2019-10-11] MEDS ORDERED: LORazepam 0.25 MG/0.5 ML VIAL IV PRN (05:14)
--- NOTE | 2019-10-11 05:30 | Emergency Department Note ---
History of Present Illness General Chief complaint: Chest Pain Stated complaint: CHEST PAIN Time Seen by Provider: 10/11/19 03:43 Source: patient, EMS and RN notes reviewed Mode of arrival: EMS Limitations: no limitations History of Present Illness Provider complaint: Chest pain Maximum Pain Intensity: 5 This patient is a 79-year-old female who presents emergency department with complaints of a sudden onset chest pain that woke her from sleep at approximately 3 AM. Patient states it shoots right through to the back. She denies radiation to the jaw or arms. She initially rates it a 10/10. Patient denies any significant history of heart disease. She is anxious and somewhat tearful because she found out today that her 44-year-old daughter has metastatic breast cancer. Patient denies any recent illness, fevers, chills, shortness of breath, abdominal pain. Home Medications Home Medications Medication Instructions Recorded Confirmed Type cholecalciferol (vitamin D3) 1,000 unit PO BID 05/06/18 10/11/19 History [Vitamin D3] paroxetine HCl 40 mg tablet 40 mg PO DAILY #90 tab 08/02/19 10/11/19 Rx alendronate 70 mg tablet 70 mg PO WK #12 tab 08/18/19 10/11/19 Rx atorvastatin 20 mg tablet 20 mg PO HS #90 tab 09/28/19 10/11/19 Rx levothyroxine 50 mcg tablet 50 mcg PO DAILY #90 tab 09/28/19 10/11/19 Rx Allergies Allergy/AdvReac Type Severity Reaction Status Date / Time Sulfa (Sulfonamide Allergy Mild HIVES Verified 10/11/19 04:00 Antibiotics) Past Med/Surg History Medical History Anxiety CAD (coronary artery disease) "Presumed coronary disease" since positive stress test in 2011. Had a negative nuke stress in 2017 at 96% MPHR. Chronic obstructive pulmonary disease MILD (FOUND ON CXR 4 YEARS AGO) Elevated partial thromboplastin time (PTT) Found on pre-op for ROBI 4 years ago. Per oncology consultation 07/13/16, + lupus anticoagulant. Patient had SAB. Hyperlipidemia Hypothyroidism Lupus anticoagulant disorder Surgeon aware for post-op thrombosis mgmt Osteoarthritis Osteoporosis Surgical History History of cataract surgery RT/LEFT History of colonoscopy History of laparoscopy IUD REMOVAL AFTER PERFORATED UTERUS History of tonsillectomy History of tooth extraction History of total hip arthroplasty LEFT HIP Family History Grandmother (Maternal) Family history of diabetes mellitus Social History Preferred Language: [place] Zealander Communication Ability: Effective Banking Paralegal Required: No Beliefs That Will Affect Care: None Current Living Situation: Alone Feels Safe at Home: Yes Smoking Status: Never smoker Second Hand Exposure: No ; Hx Alcohol Use: No Hx Substance Use: No Seatbelt Use: always Review of Systems See HPI for pertinent positives & negatives. and A total of 10 systems reviewed and were otherwise negative Physical Exam Vital Signs Vital Signs - 24 hr 10/11/19 03:42 10/11/19 04:49 Temperature 36.6 C Temperature Source Oral Pulse Rate 59 L Pulse Rate [Right] 56 L Pulse Rhythm [Right] Regular Pulse Strength [Right] Normal Respiratory Rate 12 16 Respiratory Effort / Characteristics Non-Labored Spontaneous Respiratory Depth Normal Blood Pressure 155/89 H Blood Pressure [Right Arm] 149/75 H Blood Pressure Mean 111 Blood Pressure Mean [Right Arm] 99 Blood Pressure Position [Right Arm] Lying Pulse Oximetry 99 98 Oxygen Delivery Method Room Air Room Air Sepsis Recent Fever Within 48 Hours No Sepsis New/Unexplained Change in Mental Status No Sepsis Action Taken by Nursing No Action Required Vital signs reviewed. General: Somewhat anxious appearing 79-year-old female, in some discomfort. HEENT: No scleral icterus, PERRLA, neck supple. Atraumatic. Cardiovascular: Bradycardic but regular Pulmonary: Clear to auscultation bilaterally, normal work of breathing. Abdomen: Soft, nontender, nondistended, positive bowel sounds. Musculoskeletal: Atraumatic, no peripheral edema. Neurologic: Patient awake alert and oriented x 3 Skin: Warm, dry, no rash Course Administered Medications Heparin Sodium/Dextrose (Heparin Sodium/Dextrose) 25,000 units in 500 mls @ 20 mls/hr IV .Q24H [facility]; Protocol Stop: 11/10/19 04:44 Last Admin: 10/11/19 04:43 Dose: 1,000 units/hr, 20 mls/hr Documented by: [id number] Cosigned by: [id number] Potassium Chloride/Sodium Chloride (Normal Saline W/20 Meq Kcl) 20 meq in 1,000 mls @ 100 mls/hr IV .Q10H [facility] Stop: 11/10/19 06:44 Last Admin: 10/11/19 06:53 Dose: 100 mls/hr Documented by: [id number] Ioversol (Optiray 320 125ml) 125 ml IV ONCE PRN PRN Reason: Interaction Checking Stop: 10/15/19 04:00 Last Admin: 10/11/19 04:02 Dose: 118 ml Documented by: [id number] Nitroglycerin (Nitro-Bid 2%) 1 inch EXT Q6H [facility] Stop: 11/10/19 04:59 Last Admin: 10/11/19 05:02 Dose: 1 inch Documented by: [id number] Discontinued Medications Aspirin (Aspirin) 324 mg PO NOW STA Stop: 10/11/19 03:44 Last Admin: 10/11/19 04:01 Dose: Not Given Documented by: [id number] Fentanyl Citrate (Fentanyl Citrate) 25 mcg IV NOW ONE Stop: 10/11/19 03:51 Last Admin: 10/11/19 03:58 Dose: 25 mcg Documented by: [id number] Fentanyl Citrate (Fentanyl Citrate) 50 mcg IV NOW STA Stop: 10/11/19 04:37 Last Admin: 10/11/19 04:47 Dose: 50 mcg Documented by: [id number] Heparin Sodium (Porcine) (Heparin Sodium (Porcine)) Confirm Administered Dose 5,000 units .ROUTE .STK-MED ONE Stop: 10/11/19 04:42 Last Admin: 10/11/19 04:44 Dose: 5,000 units Documented by: [id number] Cosigned by: [id number] Heparin Sodium/Dextrose () 1 ea IV NOW STA; Protocol Stop: 10/11/19 04:37 Last Admin: 10/11/19 04:45 Dose: 1 ea Documented by: [id number] Nitroglycerin (Nitrostat) 0.4 mg SL UD PRN PRN Reason: Chest Pain Stop: 11/10/19 03:42 Last Admin: 10/11/19 05:27 Dose: 0.4 mg Documented by: [id number] Admin: 10/11/19 05:06 Dose: 0.4 mg Documented by: [id number] Admin: 10/11/19 03:54 Dose: 0.4 mg Documented by: [id number] Nitroglycerin (Nitro-Bid 2%) Confirm Administered Dose 18 inch .ROUTE .STK-MED ONE Stop: 10/11/19 05:01 Last Admin: 10/11/19 05:03 Dose: Not Given Documented by: [id number] Critical Care Time Critical Care Time: Yes (40) I have personally spent greater than 40 minutes of critical care time in the direct management of this patient. This includes bedside care, interpretation of diagnostic studies, and testing, discussion with consultants, patient, and family members, and other required patient management activities. This 40 minutes is in excess of all separately billable procedures. Medical Decision Making Differential Diagnosis Differential diagnosis: Acute coronary syndrome, pulmonary embolus, aortic dissection, musculoskeletal pain, pneumonia, pleural effusion, pneumothorax, GERD, peptic ulcer disease, cholecystitis Medical Records Attestation: I reviewed the patient's medical records. Home Medications Current Medication List: was personally reviewed by me Laboratory Data Attestation: I reviewed the patient's lab results. Result diagrams: 10/11/19 03:30 10/11/19 03:30 Lab Results 10/11/19 10/11/19 10/11/19 Range/Units 03:30 03:30 03:30 WBC 10.58 (4.8-10.8) K/uL RBC 4.95 (4.2-5.4) M/uL Hgb 15.7 (12.0-16.0) g/dL Hct 45.0 (37-47) % MCV 90.9 (80-100) fL MCH 31.7 (25-34) pg MCHC 34.9 (32-36) g/dL RDW Std Deviation 45.3 (36.4-46.3) fL RDW Coeff of Addison 13.7 (11.5-14.5) % Plt Count 233 (130-400) K/uL MPV 9.8 (7.4-10.4) fL Neutrophils % (Manual) 31.6 % Lymphocytes % (Manual) 28.1 % Monocytes % (Manual) 8.8 % Eosinophils % (Manual) 2.6 % Neutrophils # (Manual) 3.34 (1.4-6.5) K/uL Total Absolute Neuts 3.34 (1.4-6.5) K/uL Lymphocytes # (Manual) 2.97 (1.2-3.4) K/uL Total Abs Lymphocytes 6.03 H (1.2-3.4) K/uL Monocytes # (Manual) 0.93 H (0.11-0.59) K/uL Eosinophils # (Manual) 0.28 (0-0.5) K/uL Large Granular Lymphs 28.9 % # Lrg Granular Lymphs 3.06 K/uL RBC Morphology Unremarkable PT 10.8 (9.0-12.0) Seconds INR 1.0 (0.9-1.1) APTT 31.9 H (21.0-31.0) Seconds PTT Ratio 1.1 Sodium 142 (136-145) mmol/L Potassium 4.0 (3.5-5.1) mmol/L Chloride 111 H (98-107) mmol/L Carbon Dioxide 20 L (21-32) mmol/L Anion Gap 11.0 (3-11) BUN 16 (7-18) mg/dl Creatinine 0.96 (0.6-1.2) mg/dl Est Cr Clr Drug Dosing 43.5 ml/min Est GFR ( Amer) 65.7 Est GFR (Non-Af Amer) 56.6 BUN/Creatinine Ratio 17.2 (10-20) Glucose 178 H (70-99) mg/dl Calcium 9.0 (8.5-10.1) mg/dl Total Bilirubin 0.5 (0.2-1) mg/dl AST 30 (15-37) U/L ALT 29 (12-78) U/L Alkaline Phosphatase 77 (45-117) U/L POC Troponin I (0-0.045) ng/ml Troponin I 2.180 H* (0-0.045) ng/ml Total Protein 7.6 (6.4-8.2) gm/dl Albumin 3.8 (3.4-5.0) gm/dl Globulin 3.8 (2.5-4.0) gm/dl Albumin/Globulin Ratio 1.0 (0.9-2) Lipase 177 (73-393) U/L 10/10/ Range/Units 03:53 WBC (4.8-10.8) K/uL RBC (4.2-5.4) M/uL Hgb (12.0-16.0) g/dL Hct (37-47) % MCV (80-100) fL MCH (25-34) pg MCHC (32-36) g/dL RDW Std Deviation (36.4-46.3) fL RDW Coeff of Addison (11.5-14.5) % Plt Count (130-400) K/uL MPV (7.4-10.4) fL Neutrophils % (Manual) % Lymphocytes % (Manual) % Monocytes % (Manual) % Eosinophils % (Manual) % Neutrophils # (Manual) (1.4-6.5) K/uL Total Absolute Neuts (1.4-6.5) K/uL Lymphocytes # (Manual) (1.2-3.4) K/uL Total Abs Lymphocytes (1.2-3.4) K/uL Monocytes # (Manual) (0.11-0.59) K/uL Eosinophils # (Manual) (0-0.5) K/uL Large Granular Lymphs % # Lrg Granular Lymphs K/uL RBC Morphology PT (9.0-12.0) Seconds INR (0.9-1.1) APTT (21.0-31.0) Seconds PTT Ratio Sodium (136-145) mmol/L Potassium (3.5-5.1) mmol/L Chloride (98-107) mmol/L Carbon Dioxide (21-32) mmol/L Anion Gap (3-11) BUN (7-18) mg/dl Creatinine (0.6-1.2) mg/dl Est Cr Clr Drug Dosing ml/min Est GFR ( Amer) Est GFR (Non-Af Amer) BUN/Creatinine Ratio (10-20) Glucose (70-99) mg/dl Calcium (8.5-10.1) mg/dl Total Bilirubin (0.2-1) mg/dl AST (15-37) U/L ALT (12-78) U/L Alkaline Phosphatase (45-117) U/L POC Troponin I 1.57 H (0-0.045) ng/ml Troponin I (0-0.045) ng/ml Total Protein (6.4-8.2) gm/dl Albumin (3.4-5.0) gm/dl Globulin (2.5-4.0) gm/dl Albumin/Globulin Ratio (0.9-2) Lipase (73-393) U/L Imaging Data Attestation: I personally reviewed and interpreted this imaging study as follows: Radiologist's Impression: CTA chest: Aorta normal opacification and caliber. Heart: Normal aortic valve, coronary arteries are normal. Pulmonary artery: Normal caliber. Negative for pulmonary embolism or right ventricular strain. Lungs: Mild bilateral basilar atelectasis. Upper abdomen: Small dependent gallbladder stones. Small hiatal hernia. Bones: Mild bilateral shoulder degenerative changes. Radiologist: Endy Neely MD ECG Data Attestation: I personally reviewed and interpreted this ECG as follows: Indication: + chest pain Rate (beats per minute): 54 Rhythm: + sinus bradycardia ECG Intervals/blocks: + Prolonged QT ECG ST segments: + ST depression (Inferior) ECG Findings: no PACs and no PVCs Additional Comments: EKG #2 Blood Pressure Blood Pressure Findings: Elevated blood pressure Blood Pressure Disposition: further management by hospitalist MDM Narrative This patient was evaluated and appeared to be in no significant distress. IV access was obtained and laboratory work was drawn. The patient was placed on a inorganic chemistry professor. Patient's EKG is concerning for inferior ST depressions with some lateral change as well. There is no evidence of ST elevation. Patient did have significant discomfort and is noted to be bradycardic. CT imaging of the chest was performed to rule out aortic dissection. This study is negative. Pat ient did receive sublingual nitroglycerin with minimal improvement. She was then given IV morphine 2 mg. Patient only had minimal resolution of her discomfort at that time. She did request additional pain medicine and was given Dilaudid 0.5 mg IV. She did receive Zofran 4 mg IV. Patient's laboratory work is concerning for a troponin of 1.57 on the [id number]. The formal laboratory troponin is 2.18. Patient was started on a heparin drip. Case was discussed with Dr. Feliz of the hospitalist service. He will evaluate the patient for admission and further management. Impression & Plan Non-ST elevated myocardial infarction (non-STEMI), Chest pain, radiating Discharge Plan Visit Data *Final* Discharge Date/Time: 10/11/19 05:33 Chief Complaint: Chest Pain Stated Complaint: CHEST PAIN ED Provider: Jacqueline Pringle Discharge Problem: Non-ST elevated myocardial infarction (non-STEMI), Chest pain, radiating Patient Disposition: Admitted As Inpatient Discharge Instructions Interventions: ED Discharge Assessment Last Done: 10/11/19 05:33
--- NOTE | 2019-10-11 05:34 | History & Physical Report ---
Date of Service October 11, 2019 Assessment & Plan (1) Non-ST elevated myocardial infarction (non-STEMI): Non-STEMI/presumed CAD/lupus anticoagulant disorder- The patient will be admitted to telemetry for serial cardiac enzymes, serial EKG's, cardiac rhythm monitoring and a 2-D echocardiogram with Dopplers. Initial troponin 2.180 Heart rate in upper 50s to low 60s, not a candidate for beta-faisal. Aspirin 81 mg p.o. daily. Did receive 324 mg already. Nitroglycerin sublingual every 5 minutes as needed for pain chest pain Nitropaste 1 inch anterior chest wall every 6 hours Heparin drip standard protocol after bolus. NSS + KCl 20 mEq at 100 mils per hour Order complete echocardiogram Consult cardiology Dr. Escobedo Present on Admission?: Yes (2) CAD (coronary artery disease): See above Present on Admission?: Yes (3) Lupus anticoagulant disorder: See above Present on Admission?: Yes (4) Hyperlipidemia: Increase atorvastatin from 20 mg to 80 mg p.o. daily Check a fasting lipid panel Present on Admission?: Yes (5) Hyperglycemia: No known history of diabetes or prediabetes. Glucose 178 upon admission Check hemoglobin A1c Accu-Cheks before meals and at bedtime with NovoLog coverage per scale Present on Admission?: Yes (6) Chronic obstructive pulmonary disease: Patient not requiring inhalers on med list. Present on Admission?: Yes (7) Hypothyroidism: Continue levothyroxine sodium 50 mcg daily Present on Admission?: Yes (8) Anxiety: Continue paroxetine 40 mg p.o. daily. Add lorazepam 0.25 mg IV every 6 hours as needed Present on Admission?: Yes History of Present Illness Chief Complaint: The patient presents to the emergency department with complaint of the acute onset at 3 AM this morning of chest pain shooting through to her back, that woke her up from sleep. Primary Care Provider: Tania Brennan MD The patient is a 79-year-old female with a past medical history including hyperlipidemia, hypothyroidism, anxiety with depression and osteoporosis. She was awoken from sleep at 3 AM this morning with acute onset of chest pain, that radiated straight through to her back. She has not had any recent travels or sick exposures. She did have a recent stressful event yesterday where her 44-year-old daughter was found to have metastatic breast cancer to liver. The patient initially rated her pain as 10/10, and after initial sublingual nitroglycerin, fentanyl 50 then 25 mcg IV by the ED, and then 1 additional nitroglycerin, the pain is presently 3/10. Initial EKG showed [address] depressions in inferior leads, that resolved with the EKG done 1 hour later. Patient has been started on a heparin drip after a 5000 unit bolus from the ED. I have also added Nitro-Bid 2% to be applied to anterior chest wall every 6 hours, and morphine sulfate 2 mg IV every 30 minutes as needed per protocol. She did receive aspirin 325 mg chewable. Allergies Allergy/AdvReac Type Severity Reaction Status Date / Time Sulfa (Sulfonamide Allergy Mild HIVES Verified 10/11/19 04:00 Antibiotics) Home Medications Home Medications Medication Instructions Recorded Confirmed Type cholecalciferol (vitamin D3) 1,000 unit PO BID 05/06/18 10/11/19 History [Vitamin D3] paroxetine HCl 40 mg tablet 40 mg PO DAILY #90 tab 08/02/19 10/11/19 Rx alendronate 70 mg tablet 70 mg PO WK #12 tab 08/18/19 10/11/19 Rx atorvastatin 20 mg tablet 20 mg PO HS #90 tab 09/28/19 10/11/19 Rx levothyroxine 50 mcg tablet 50 mcg PO DAILY #90 tab 09/28/19 10/11/19 Rx Past Med/Surg History Medical History Anxiety CAD (coronary artery disease) "Presumed coronary disease" since positive stress test in 2011. Had a negative nuke stress in 2017 at 96% MPHR. Chronic obstructive pulmonary disease MILD (FOUND ON CXR 4 YEARS AGO) Elevated partial thromboplastin time (PTT) Found on pre-op for ROBI 4 years ago. Per oncology consultation 07/13/16, + lupus anticoagulant. Patient had SAB. Hyperlipidemia Hypothyroidism Lupus anticoagulant disorder Surgeon aware for post-op thrombosis mgmt Osteoarthritis Osteoporosis Surgical History History of cataract surgery RT/LEFT History of colonoscopy History of laparoscopy IUD REMOVAL AFTER PERFORATED UTERUS History of tonsillectomy History of tooth extraction History of total hip arthroplasty LEFT HIP Family History Grandmother (Maternal) Family history of diabetes mellitus Social History Preferred Language: Nepalese Communication Ability: Effective Registration Clerk Required: No Beliefs That Will Affect Care: None Current Living Situation: Spouse Feels Safe at Home: Yes Smoking Status: Never smoker Second Hand Exposure: No ; Hx Alcohol Use: No Hx Substance Use: No Seatbelt Use: always Review of Systems Review of Systems: The patient denies palpitations, cough, lower extremity swelling, sore throat, fevers, chills, sweats, fatigue, nausea, vomiting, diarrhea, constipation, abdominal pain, pelvic pain, blood in urine or stool, dysuria, urinary frequency or urgency, lightheadedness, dizziness, headache, memory loss, loss of consciousness, rash, abnormal bruising or bleeding, imbalance, focal or generalized weakness, numbness or tingling in arms or legs, generalized arthralgias or myalgias, neck pain, or night sweats. The review of systems is otherwise negative other than for that already noted above, and at least 10 systems have been reviewed. Physical Exam Physical Exam: The patient is awake, alert and oriented 3, well developed and well nourished, normocephalic and atraumatic, lying in bed and in no acute distress. HEENT--PERRL, EOMI, mucous membranes and oropharynx dry. Neck--supple. No JVD. No bruits. Thyroid normal, trachea midline, no adenopathy. Heart--normal S1 and S2. No murmurs, rubs or gallops. Lungs--clear bilaterally, no respiratory distress, no accessory muscle use. Abdomen--normal bowel sounds and soft. Nontender. Nondistended. Extremities--no cyanosis or clubbing. No edema. Dermatologic--normal skin turgor, normal color, no abnormal lymph nodes, no rash. Neurologic--cranial nerves II through XII grossly intact. Rheumatologic--normal range of motion. Psychiatric--anxious. Results & Data Results & Data ([facility]) Vital Signs (Past 12 Hours) Vital Signs Temp Pulse Pulse Resp BP BP Pulse Ox 10/11/19 04:49 56 L 16 149/75 H 98 10/11/19 03:42 97.9 F 59 L 12 155/89 H 99 Laboratory Results Laboratory Results WBC 10.58 K/uL (4.8-10.8) 10/11/19 03:30 RBC 4.95 M/uL (4.2-5.4) 10/11/19 03:30 Hgb 15.7 g/dL (12.0-16.0) 10/11/19 03:30 Hct 45.0 % (37-47) 10/11/19 03:30 MCV 90.9 fL (80-100) 10/11/19 03:30 MCH 31.7 pg (25-34) 10/11/19 03:30 MCHC 34.9 g/dL (32-36) 10/11/19 03:30 RDW Std Deviation 45.3 fL (36.4-46.3) 10/11/19 03:30 RDW Coeff of Addison 13.7 % (11.5-14.5) 10/11/19 03:30 Plt Count 233 K/uL (130-400) 10/11/19 03:30 MPV 9.8 fL (7.4-10.4) 10/11/19 03:30 Neutrophils % (Manual) 31.6 % 10/11/19 03:30 Lymphocytes % (Manual) 28.1 % 10/11/19 03:30 Monocytes % (Manual) 8.8 % 10/11/19 03:30 Eosinophils % (Manual) 2.6 % 10/11/19 03:30 Neutrophils # (Manual) 3.34 K/uL (1.4-6.5) 10/11/19 03:30 Total Absolute Neuts 3.34 K/uL (1.4-6.5) 10/11/19 03:30 Lymphocytes # (Manual) 2.97 K/uL (1.2-3.4) 10/11/19 03:30 Total Abs Lymphocytes 6.03 K/uL (1.2-3.4) H 10/11/19 03:30 Monocytes # (Manual) 0.93 K/uL (0.11-0.59) H 10/11/19 03:30 Eosinophils # (Manual) 0.28 K/uL (0-0.5) 10/11/19 03:30 Large Granular Lymphs 28.9 % 10/11/19 03:30 # Lrg Granular Lymphs 3.06 K/uL 10/11/19 03:30 RBC Morphology Unremarkable 10/11/19 03:30 PT 10.8 Seconds (9.0-12.0) 10/11/19 03:30 INR 1.0 (0.9-1.1) 10/11/19 03:30 APTT 31.9 Seconds (21.0-31.0) H 10/11/19 03:30 PTT Ratio 1.1 10/11/19 03:30 Sodium 142 mmol/L (136-145) 10/11/19 03:30 Potassium 4.0 mmol/L (3.5-5.1) 10/11/19 03:30 Chloride 111 mmol/L (98-107) H 10/11/19 03:30 Carbon Dioxide 20 mmol/L (21-32) L 10/11/19 03:30 Anion Gap 11.0 (3-11) 10/11/19 03:30 BUN 16 mg/dl (7-18) 10/11/19 03:30 Creatinine 0.96 mg/dl (0.6-1.2) 10/11/19 03:30 Est Cr Clr Drug Dosing 43.5 ml/min 10/11/19 03:30 Est GFR ( Amer) 65.7 10/11/19 03:30 Est GFR (Non-Af Amer) 56.6 10/11/19 03:30 BUN/Creatinine Ratio 17.2 (10-20) 10/11/19 03:30 Glucose 178 mg/dl (70-99) H 10/11/19 03:30 Calcium 9.0 mg/dl (8.5-10.1) 10/11/19 03:30 Total Bilirubin 0.5 mg/dl (0.2-1) 10/11/19 03:30 AST 30 U/L (15-37) 10/11/19 03:30 ALT 29 U/L (12-78) 10/11/19 03:30 Alkaline Phosphatase 77 U/L (45-117) 10/11/19 03:30 POC Troponin I 1.57 ng/ml (0-0.045) H 10/11/19 03:53 Troponin I 2.180 ng/ml (0-0.045) H* 10/11/19 03:30 Total Protein 7.6 gm/dl (6.4-8.2) 10/11/19 03:30 Albumin 3.8 gm/dl (3.4-5.0) 10/11/19 03:30 Globulin 3.8 gm/dl (2.5-4.0) 10/11/19 03:30 Albumin/Globulin Ratio 1.0 (0.9-2) 10/11/19 03:30 Lipase 177 U/L (73-393) 10/11/19 03:30 Diagnostic Findings [facility] Patient: DAYLIN KNAPP (Female) : 42 Status: ER Date: 10/11/19 04:27 Room #: History: PAIN AT CENTER OF CHEST AND INTO BACK Slices: [id number] Priors: Tech: Norris Quiñones @ [phone] Exams: CTA CHEST Contrast: IV Amt: 118 ML OPTIRAY 320 Accession Numbers: [id number] Preliminary Findings Only See Final Report For Complete Findings CTA CHEST: Aorta: Normal opacification and caliber. Heart: Normal aortic valve, coronary arteries are normal. Pulmonary artery: Normal caliber. Negative for pulmonary embolism or right ventricular strain. Lungs: Mild bilateral basilar atelectasis. Upper abdomen: Small dependent gallbladder stones. Small hiatal hernia. Bones: Mild bilateral shoulder degenerative changes. Radiologist: Endy Neely MD Study ready at 04:33 and initial results transmitted at 04:54 *This report constitutes a preliminary interpretation only. Non-acute findings felt to be unrelated to the clinical presentation may not be discussed in this report. The study will be interpreted and a final report will be generated by the local Radiologist the following shift. To reach the hospital radiology department call [phone]. If a discrepancy is found between the preliminary and final interpretations of this study, please notify us via our Client Portal at [email or web address] [email or web address] [email or web address].You can also fax this report with a description of the discrepancy, or include the final report, to our daytime fax number [phone].If faxing, please indicate the severity of discrepancy using one of the following categories: [ ] 1 - Agree/Informational [ ] 2 - Unlikely to Affect Management [ ] 3 - Possible Eventual Change of Management [ ] 4 - Probable Immediate Change of Management For all other patient related information, please fax us at [phone]. [id number] [phone] Code Status & VTE Plan Code Status Full code VTE Prophylaxis Plan VTE Prophylaxis will be ordered: Yes Critical Care Time Critical Care Time: Yes Total Critical Care Time: 40 PG Care Time/CCT Total # of Minutes Spent Total Time Spent with Patient: Total time spent is greater than 50% in coordination of care (as documented) at patient's floor/unit and/or counseling patient: Critical Care Time: Yes Total Critical Care Time: 40 Coding Level of Care Code 22654 Initial Inpt Care Lvl 3 Diagnoses Non-ST elevated myocardial infarction (non-STEMI) I21.4 CAD (coronary artery disease) I25.10 Lupus anticoagulant disorder D68.62 Hyperlipidemia E78.5 Hyperglycemia R73.9 Chronic obstructive pulmonary disease J44.9 Hypothyroidism E03.9 Anxiety F41.9 Additional Codes Critical Care Time - Critical Care Time: Yes ([id number]) Time Spent (min) 40 Comment A total of 40 minutes was spent on critical care time while in the ED. This involved assessment with patient, coordination of care with emergency department physician and staff, heparin drip, IV fluids, sublingual nitroglycerin, Nitropaste, and discussion with son over phone.
[2019-10-11] MEDS ORDERED: ONDANSETRON INJ 2 MG/ML 2 ML VIAL IV PRN (06:24)
[2019-10-11] MEDS ORDERED: ACETAMINOPHEN 325 MG TAB PO PRN (06:24)
[2019-10-11] MEDS ORDERED: GLUCOSE 10 TABS/TUBE PO PRN (06:24)
[2019-10-11] MEDS ORDERED: MAGNESIUM HYDROXIDE SUSP 30 ML UDC PO PRN (06:24)
[2019-10-11] MEDS ORDERED: NITROGLYCERIN SL 0.4 MG/TAB TAB SL PRN (06:24)
[2019-10-11] MEDS ORDERED: DEXTROSE 50% 50 ML SYRINGE IV PRN (06:24)
[2019-10-11] MEDS ORDERED: ALUMINUM/MAGNESIUM SUSP 30 ML UDC PO PRN (06:24)
[2019-10-11] MEDS ORDERED: GLUCOSE 40% GEL 15 GM TUBE PO PRN (06:24)
[2019-10-11] MEDS ORDERED: MoRPHine SULFATE 2 MG/ML CARP IV PRN (06:24)
[2019-10-11] MEDS ORDERED: GLUCAGON FOR INJ 1 MG VIAL SQ PRN (06:24)
[2019-10-11] MEDS ORDERED: CARBOHYDRATES FOR HYPOGLYCEMIA PO PRN (06:24)
[2019-10-11] MEDS: NSS + 20MEQ KCL 20 MEQ/1,000 ML BAG IV SCH ×2 (06:53→17:59)
--- NOTE | 2019-10-11 08:04 | CT Scan Report ---
CT ANGIOGRAM OF THE CHEST COMBO CLINICAL HISTORY: Atypical chest pain. COMPARISON STUDY: Chest x-ray dated 05/12/2018. TECHNIQUE: Before and following the IV administration of 118 cc of Optiray 320, CT angiogram of the c hest was performed from the thoracic inlet to the upper abdomen utilizing the dissection protocol. Im ages are reviewed in the axial, sagittal, and coronal planes. 3-D MIPS images are created and assesse d. IV contrast was administered without complication. A dose lowering technique was utilized adherin g to the principles of ALARA. CT DOSE: 805.07 mGycm FINDINGS: Thyroid: Imaged portions of the thyroid gland are normal in size and attenuation. Thoracic aorta: No intramural hematoma is seen on the unenhanced series. There is mild atheroscleroti c calcification of the thoracic aorta, which is normal in caliber and demonstrates standard 3-vessel arch anatomy. No dissection is seen. The arch vessels are widely patent. Pulmonary vasculature: The pulmonary trunk is normal in caliber. There are no central filling defects identified in the pulmonary vessels to suggest pulmonary embolus. Note that this examination was not specifically protocoled to assess for pulmonary emboli. Heart: The heart is top normal in size and without pericardial effusion. There are scattered coronary artery calcifications. Lungs and pleural spaces: There is no airspace consolidation or pleural effusion. The trachea and paty tral airways are clear. There are bilateral fat-containing Bochdalek hernias. Dependent atelectasis i s noted at the lung bases. Apical scarring is observed. A 5 mm pleural-based nodule is seen in the an terior right lower lobe on image #212. Mediastinum: There is no mediastinal lymphadenopathy. Christelle: Clear. Axillae: There is no axillary lymphadenopathy. Upper abdomen: There is a small hiatal hernia. There are calcified gallstones. Skeletal structures: The skeletal structures are osteopenic. No lytic or blastic bony lesions are see n. Arthritic change is noted in the shoulders. Degenerative change and mild scoliosis are noted throu ghout the thoracic spine. There is a mild and age indeterminant superior endplate compression deformi ty of L1. IMPRESSION: 1. Unremarkable CT angiogram of the thoracic aorta. 2. There is no airspace consolidation or pleural effusion. 3. Cholelithiasis. 4. There is a mild and age indeterminant superior endplate compression deformity of L1. Correlate for point tenderness. 5. There is a 5 mm pleural-based nodule in the right lower lobe. If clinically warranted this may be followed as per the Fleischner criteria. See below. 6. Additional findings as above. Please refer to below summary of Fleischner criteria recommendations for follow-up of incidental CT n odules (Rober Zarate, Guidelines for management of small pulmonary nodules detected on CT scans: A estelita tement from the Fleischner Society, Radiology 237: [phone].) SOLID NODULES Solitary nodule size: <6 mm * low risk patients: no follow-up needed * high risk patients: optional CT at 12 months Solitary nodule size: 6-8 mm * low risk patients: follow-up at 6-12 months, then consider further follow-up at 18-24 months * high risk patients: initial follow-up CT at 6-12 months and then at 18-24 months if no change Solitary nodule size: >8 mm * either low or high risk patients - consider follow-up CT at 3 months, and/or CT-PET, and/or biopsy Multiple nodules size: <6 mm * low risk patients: no routine follow-up * high risk patients: optional CT at 12 months Multiple nodules size: 6-8 mm * low risk patients: follow-up at 3-6 months, then consider further follow-up at 18-24 months * high risk patients: follow-up at 3-6 months, then at 18-24 months if no change Multiple nodules size: >8 mm * low risk patients: follow-up at 3-6 months, then consider further follow-up at 18-24 months * high risk patients: follow-up at 3-6 months, then at 18-24 months if no change Note: newly detected indeterminate nodule in persons 35 years of age or older. * low risk patients: minimal or absent history of smoking and/or other known risk factors * high risk patients: history of smoking or of other known risk factors (e.g. first degree relative with lung cancer, or exposure to asbestos, radon, uranium) * if a nodule up to 8 mm is partly solid or is ground glass further follow-up is required after 24 m onths to exclude possible slow growing adenocarcinoma (JUNIOR) SUBSOLID NODULES Solitary pure ground-glass nodule * nodule size <6 mm - no CT follow-up required * nodule size >=6 mm - follow-up CT at 6-12 months, then every 2 years until 5 years Solitary part-solid nodule * nodule size <6 mm - no CT follow-up required * nodule size >=6 mm - follow-up CT at 3-6 months. If unchanged, and solid component remains <6 mm, then annual follow-up for 5 years Multiple subsolid nodules * nodule size <6 mm - follow-up CT at 3-6 months, consider further follow-up at 2 and 4 years if sta ble * nodule size >=6 mm - follow-up CT at 3-6 months, subsequent management based on the most suspiciou s nodule(s) ACT 112: Negative or not required by law. Electronically signed by: Cristofer Munoz M.D. 10/11/2019 8:03 AM
[2019-10-11] MEDS: ASPIRIN 81 MG ECTAB PO SCH (08:26)
[2019-10-11] MEDS: LEVOTHYROXINE SODIUM 50 MCG TABLET PO SCH (08:26)
[2019-10-11] MEDS: CHOLECALCIFEROL 1,000 UNITS 25 MCG TAB PO SCH ×2 (08:27→21:24)
[2019-10-11] MEDS: PARoxetine HCL 20 MG TAB PO SCH (08:27)
[2019-10-11] MEDS: INSULIN ASPART 100 UNITS/ML 3 ML PEN SC SCH ×4 (08:31→22:16)
--- NOTE | 2019-10-11 11:04 | Cardiology Consultation ---
Date of Consultation October 11, 2019 Assessment & Plan (1) Chest pain, radiating: - BP, pulse, SpO2, and physical exam are currently WNL and the patient is currently stable - Given this patient's presumed history of coronary disease from a positive stress test in 2011 - followed by similar chest pains 2 years ago but a negative nuclear study - alongside recent and significant emotional stress, serially positive troponins since this AM (8.9 at 0640hr < and 2.18 at 0330hr), and an initial EKG demonstrating ST-depressions in the inferior leads, suspect ACS- NSTEMI as most likely culprit. Stress cardiomyopathy may also be possible, but should be considered a diagnosis of exclusion. - CT-Chest performed in ED was negative for acute pulmonary/pulmonary vasculature or aortic process, including PE / dissection - Recommend cardiac catheterization for further evaluation and management of AC S. Risks, benefits, and alternatives were discussed with the patient by the attending physician. - s/p ASA 325, UFH 5000U bolus, 2x SL nitroglycerin in ED - Initial HR between 50-60s - as such, beta-faisal therapy not initiated - Continue SL nitroglycerin every 5min PRN for chest pain, nitrobid paste q6h, UFH 1000U/h - Repeat EKG this AM was WNL without appreciable ST changes Present on Admission?: Yes (2) CAD (coronary artery disease): - See plan above for "chest pain, radiating" (3) Hyperlipidemia: - Continue atorvastatin 20mg PO daily Supervising Physician Co-Signing Physician Notes I saw and examined the patient with Dr. Ding and agree with the documentation noted above. Briefly, the patient developed the acute onset of chest pain consistent with ischemia. She was treated for acute coronary syndrome and has had elevated cardiac biomarkers suggestive of injury. Her echocardiogram does demonstrate regional wall motion abnormalities involving the anterior wall. Her EKG is normal. She continues have some symptoms of chest discomfort. I would agree with proceeding to coronary angiography in order to exclude or confirm an acute coronary syndrome. An alternate diagnosis was simply be stress induced injury. History of Present Illness Reason for Consultation: ACS, NSTEMI Attending Physician: Chandu Begum MD History of Present Illness Soraya James is a 79-year-old female with a notable PMH including presumed CAD since a positive stress test in 2011 but with a negative nuclear study in 2017 (at 96% MPHR), anxiety with depressive features, positive lupus anticoagulant, HLD, hypothyroidism, OA, and osteoporosis who presents via cardiology consultation for evaluation of a possible NSTEMI in the setting of recent chest pain. Ms. James reported to the [facility] ED earlier this morning with a chief complaint of severe chest pain that radiated to the back. She notes that earlier in the afternoon yesterday, she received word that her daughter - who has a notable history of breast cancer - was found to have suspicious lesions on her liver from a scan that was suggestive of metastatic progression. Around this time, Ms. James noted having a panic attack that mainly manifested itself as severe feelings of stress and a dull, continuous, substernal chest pain that did not radiate and was not associated with feelings of palpitations, a racing heart, or shortness of breath. She had similar pain about 2 years ago and subsequently got a nuclear stress test, which was reportedly negative / WNL; otherwise, she does not usually have chest pain in general or with exertion. She notes that her pain went away that afternoon and she was able to get to sleep fine. Then, around 2am, she awoke with a with a return of the substernal chest pain that was much more severe (10/10) and also radiated to her back "between the shoulder blades." She did not experience dyspnea at this time, but did note she felt nauseous. She called 911 and was brought to [facility] ED for further evaluation. In the ED, EKG revealed ST-segment depressions in the inferior leads but an otherwise normal CT Chest (no findings suggestive of PE or acute aortopathy) and was further worked up for ACS/NSTEMI. Troponins were elevated to 2.18 at 3:30AM. She was given ASA 325, a UFH bolus of 500U and then started on a 1000U drip, nitroglycerin x 2 and started on nitrobid q6h, and given fentanyl for pain management. Troponins continued to be elevated to 8.9 at 6:40 AM. She was admitted to telemetry for continued cardiac monitoring involving enzymes, EKG, and rhythm monitoring, as well as an echocardiogram. This morning, she continued to experience the same dull chest pain, but was closer to 4/10 compared to the 10/10 last night. She denied any dyspnea, recent swelling in her legs, recent fevers, chills, and night sweats, or any recent medication changes over the past few days. Denied use of any recreational drugs or tobacco products. She lives alone in [place], with her daughter living separately close by. Allergies Allergy/AdvReac Type Severity Reaction Status Date / Time Sulfa (Sulfonamide Allergy Mild HIVES Verified 10/11/19 04:00 Antibiotics) Home Medications Home Medications Medication Instructions Recorded Confirmed Type cholecalciferol (vitamin D3) 1,000 unit PO BID 05/06/18 10/11/19 History [Vitamin D3] paroxetine HCl 40 mg tablet 40 mg PO DAILY #90 tab 08/02/19 10/11/19 Rx alendronate 70 mg tablet 70 mg PO WK #12 tab 08/18/19 10/11/19 Rx atorvastatin 20 mg tablet 20 mg PO HS #90 tab 09/28/19 10/11/19 Rx levothyroxine 50 mcg tablet 50 mcg PO DAILY #90 tab 09/28/19 10/11/19 Rx Patient History Medical History Anxiety CAD (coronary artery disease) "Presumed coronary disease" since positive stress test in 2011. Had a negative nuke stress in 2017 at 96% MPHR. Chronic obstructive pulmonary disease MILD (FOUND ON CXR 4 YEARS AGO) Elevated partial thromboplastin time (PTT) Found on pre-op for ROBI 4 years ago. Per oncology consultation 07/13/16, + lupus anticoagulant. Patient had SAB. Hyperlipidemia Hypothyroidism Lupus anticoagulant disorder Surgeon aware for post-op thrombosis mgmt Osteoarthritis Osteoporosis Surgical History History of cataract surgery RT/LEFT History of colonoscopy History of laparoscopy IUD REMOVAL AFTER PERFORATED UTERUS History of tonsillectomy History of tooth extraction History of total hip arthroplasty LEFT HIP Family History Grandmother (Maternal) Family history of diabetes mellitus Social History Preferred Language: Belarusian Communication Ability: Effective Health Commissioner Required: No Beliefs That Will Affect Care: None Current Living Situation: Alone Feels Safe at Home: Yes Smoking Status: Never smoker Second Hand Exposure: No ; Hx Alcohol Use: No Hx Substance Use: No Seatbelt Use: always Review of Systems Constitutional: no fever, no chills, no sweats and no fatigue Eyes: no worsening vision Ear, Nose, Mouth, Throat: no hearing loss, no dysphagia and no neck lump Respiratory: no cough and no dyspnea Cardiovascular: + chest pain and + chest pain at rest; no orthopnea, no paroxysmal nocturnal dyspnea, no palpitations, no lightheadedness, no syncope, no edema and no calf pain Gastrointestinal: + nausea and + vomiting (dry heaving); no abdominal pain, no hematemesis and no change in bowel habits Genitourinary: no dysuria, no difficulty urinating and no urinary frequency Musculoskeletal: + back pain (upper back pain associated with chest pain) Neurologic: no localized weakness, no generalized weakness, no loss of sensation, no tingling, no numbness and no paresthesia Hematologic / Lymphatic: no night sweats Physical Exam Constitutional: WD/WN 79-year-old female who was sitting relaxed in her bed, occasionally tearful at times. She was A+O x 3 and appropriately responsive to questions, with NAD. Eyes: PERRL, conjunctivae normal, anicteric sclerae EOM intact bilaterally ENMT: external ear and nose normal, oropharynx normal Neck: trachea midline, no thyromegaly normal visual inspection Thyroid: normal thyroid Respiratory: normal respiratory effort, lungs clear to auscultation Cardiovascular: Rate/Rhythm: regular rate and regular rhythm Heart Sounds: normal S1 and normal S2 Vessels: normal peripheral pulses; no JVD Extremities: no calf tenderness, no pedal edema and no edema Gastrointestinal (Abdomen): normal bowel sounds, soft, nontender, no hepatosplenomegaly Skin: no rashes, warm and dry Psychiatric: Orientation: alert and oriented x 3 Affect: + tearful affect Lymphatic: no cervical lymphadenopathy Results & Data ([facility]) Vital Signs (Past 12 Hours) Vital Signs Temp Pulse Pulse Resp BP BP Pulse Ox 10/11/19 08:00 57 L 19 10/11/19 07:42 59 L 17 144/75 H 95 10/11/19 06:25 36.4 C L 60 16 155/79 H 97 10/11/19 06:24 10/11/19 05:33 57 L 18 142/71 H 94 10/11/19 04:49 56 L 16 149/75 H 98 10/11/19 03:42 36.6 C 59 L 12 155/89 H 99 Pulse Ox 10/11/19 08:00 10/11/19 07:42 10/11/19 06:25 10/11/19 06:24 97 10/11/19 05:33 10/11/19 04:49 10/11/19 03:42 PG Care Time/CCT Total # of Minutes Spent Total Time Spent with Patient: Total time spent is greater than 50% in coordination of care (as documented) at patient's floor/unit and/or counseling patient: Coding Level of Care Code 44807 Initial Inpt Care Lvl 3 Diagnoses Chest pain, radiating R07.89 CAD (coronary artery disease) I25.10 Hyperlipidemia E78.5
[2019-10-11 11:13] LABS: Partial Thromboplastin Ratio > 5.0
[2019-10-11 11:16] LABS: Partial Thromboplastin Time > 139.0 Seconds (21.0-31.0)
--- NOTE | 2019-10-11 11:54 | Hospitalist Progress Note ---
Date of Service October 11, 2019 Assessment & Plan (1) CAD (coronary artery disease): Soraya is a 79-year-old female with a past medical history of degenerative joint disease, hyperlipidemia, hypothyroidism, lupus anticoagulant, and COPD with no history of diabetes who presents with 10/10 chest pain after receiving the news that her daughter has breast cancer and whose pain was reduced to 3/10 with nitro/aspirin/morphine, and to had a elevated troponin on admission to the ED. NSTEMI Patient with inferior ST depressions of 1 mm on presentation to the ED Troponin increased to 2.1 in ED, currently uptrending at 8.9 Patient received nitro, fentanyl, aspirin and was placed on heparin GTT w/ bolus. Continue heparin GTT. Cardiology consulted, anticipate cardiac catheterization. Pain improved, but 3/10 discomfort radiating to shoulder blades persists. CTA on admission showed no signs of PE or dissection. Echo pending Natural history of severe stress with the news of her daughter's cancer history initially concerning for stress cardiomyopathy, ACS much more likely given EKG and troponins. Hypothyroidism Synthroid 50 mcg daily TSH pending Hyperlipidemia Continue atorvastatin 20 mg p.o. daily COPD No COLLE[employer]ICER medications DuoNebs as needed Anxiety/depression Continue fluoxetine 40 mg p.o. daily Diet: Heart healthy DVT prophylaxis: On heparin GTT as above Disposition: PCU (2) Hyperglycemia: (3) Chronic obstructive pulmonary disease: (4) Lupus anticoagulant disorder: (5) Anxiety: (6) Non-ST elevated myocardial infarction (non-STEMI): (7) Hypothyroidism: (8) Hyperlipidemia: (9) Osteoarthritis of right hip: (10) Chest pain, radiating: Admission and Anticipated Discharge Date Admission Date: October 11, 2019 Supervising Physician Co-Signing Physician Notes I saw the patient twice today; earlier this morning independently and later this afternoon concurrent with the resident physician. I agree with the impression and plan as noted in the resident documentation. I also personally discussed the case with the consulting boat deckhand. ACSnon-STEMI Echocardiogram shows moderate hypokinesis of the anterior wall from the base to mid ventricle but preserved left ventricular function Catheterization demonstrates nonobstructive coronary disease involving the left anterior descending Add Toprol XL 25 mg, this may also have beneficial effect on anxiety but will need to watch her heart rate Continue atorvastatin 80 mg daily Situational anxiety, in the setting of chronic anxiety She was admitted on Paxil 40 mg daily Outpatient counseling/therapy may be of benefit Benzodiazepine in the short-term given family illness seems reasonable, especially as an inpatient We will defer changes to SSRI to primary care physician Subjective Seen at the bedside this morning. Patient reports continued to have 3/10 chest pain without shortness of breath at rest. Some pain radiating between her shoulder blades. Cries during exam, expresses emotional distress about her daughter's recent diagnosis of breast cancer. No lightheadedness/dizziness. Review of Systems Review of Systems: Constitutional: Denies fever, chills Eyes: Denies vision change Cardiovascular: Endorses chest pain, prior palpitations with none currently, chest discomfort radiating to her shoulder blades. Respiratory: Denies shortness of breath, cough, sputum production, difficulty breathing Gastrointestinal: Denies abdominal pain, nausea, vomiting Genitourinary: Denies pain with urination Musculoskeletal: Denies weakness, muscle aches/pain, joint aches/pain Integumentary:Denies rash, lesions, bruising Physical Exam Physical Exam: General: A&Ox3. NAD. Cooperative. Affect sad, cries during exam expressing sadness over her daughter's cancer diagnosis. HEENT: Atraumatic, normocephalic. Equals equal and reactive to light and accommodation. Pulm: CTAB A&P. -wheezes, -rales, -rhonchi. Symmetrical chest rise. No increase work of breathing. No respiratory distress. Cardiac: RRR, -mrg. Radial pulses intact and symmetrical. No JVD. Abdominal: Nontender, nondistended, soft. BS present. MSK: PT pulses intact bilaterally. Dorsiflexion/plantarflexion at the ankle 5/5 and symmetrical, neckties painter strength, elbow flexion 5/5 bilaterally and symmetrical. Results & Data Results & Data ([facility]) Vital Signs (Past 12 Hours) Vital Signs Temp Pulse Pulse Resp BP BP Pulse Ox 10/11/19 08:00 57 L 19 10/11/19 07:42 59 L 17 144/75 H 95 10/11/19 06:25 36.4 C L 60 16 155/79 H 97 10/11/19 06:24 10/11/19 05:33 57 L 18 142/71 H 94 10/11/19 04:49 56 L 16 149/75 H 98 10/11/19 03:42 36.6 C 59 L 12 155/89 H 99 Pulse Ox 10/11/19 08:00 10/11/19 07:42 10/11/19 06:25 10/11/19 06:24 97 10/11/19 05:33 10/11/19 04:49 10/11/19 03:42 Resident Activity Tracking Resident Involvement: Resident Care Provided Care Provided: Adult Hospital Medicine
[2019-10-11] MEDS ORDERED: HEPARIN (PORCINE) 1000 UNIT/ML 10 ML (CATH LAB USE ONLY) ONE (12:12)
[2019-10-11] MEDS ORDERED: fentaNYL citrate 100 MCG/2 ML VIAL ONE (12:12)
[2019-10-11] MEDS ORDERED: NiCARDipine HCL INJ 2.5 MG/ML 10 ML AMP ONE (12:12)
[2019-10-11] MEDS ORDERED: NITROGLYCERIN/D5W 100MCG/ML 20ML SYR ONE (12:13)
[2019-10-11] MEDS ORDERED: MIDAZOLAM HCL 1 MG/ML 2ML VIAL ONE (12:13)
--- NOTE | 2019-10-11 12:20 | Pre Anesthesia Assessment ---
Date of Service October 11, 2019 Pre Sedation Assessment Vital Signs Temp Pulse Pulse Resp BP BP Pulse Ox 10/11/19 08:00 57 L 19 10/11/19 07:42 59 L 17 144/75 H 95 10/11/19 06:25 36.4 C L 60 16 155/79 H 97 10/11/19 06:24 10/11/19 05:33 57 L 18 142/71 H 94 10/11/19 04:49 56 L 16 149/75 H 98 10/11/19 03:42 36.6 C 59 L 12 155/89 H 99 Pulse Ox 10/11/19 08:00 10/11/19 07:42 10/11/19 06:25 10/11/19 06:24 97 10/11/19 05:33 10/11/19 04:49 10/11/19 03:42 Cardiovascular + regular rate Respiratory + respiratory effort normal Pre-Sedation Airway Assessment Smoking Status: Never smoker Hx Sleep Apnea: No Hx Difficult Intubation: No Short, Thick Neck: No Thyromental Distance: > or= 3.5 Finger Breadths Oral Cavity: + WNL Mallampati Class: III ASA: ASA3 Procedure Planning Contraindications for Sedation: none Current Medications Reviewed: Yes Notes The planned sedation has been discussed with the patient. Informed Consent was obtained. I have identified the patient, determined the appropriateness of sedation and have assessed the patient immediately prior to the procedure. All medicine(s) and interventions are by my order.
--- NOTE | 2019-10-11 12:48 | Post Anesthesia Assessment ---
Date of Service October 11, 2019 Post Sedation Assessment Vital Signs Temp Pulse Pulse Resp BP BP Pulse Ox 10/11/19 08:00 57 L 19 10/11/19 07:42 59 L 17 144/75 H 95 10/11/19 06:25 36.4 C L 60 16 155/79 H 97 10/11/19 06:24 10/11/19 05:33 57 L 18 142/71 H 94 10/11/19 04:49 56 L 16 149/75 H 98 10/11/19 03:42 36.6 C 59 L 12 155/89 H 99 Pulse Ox 10/11/19 08:00 10/11/19 07:42 10/11/19 06:25 10/11/19 06:24 97 10/11/19 05:33 10/11/19 04:49 10/11/19 03:42 Recovery Score Activity: Moves 4 extremities Respiration: Deep Breath/Cough Circulation: +/-20% PreAnes Value Consciousness: Arouseable (by name) Oxygen Saturation: > 92% On Room Air Discharge Sedation Level of Care: Fast Track Phase II Post Sedation Plan On clinical assessment, the patient appears to have tolerated the sedation without complications. Patient is recovering as anticipated. Patient will continue to be monitored by nursing and may be discharged when sedation discharge criteria are met per below protocol. Upon Completions of procedure up to 15 minutes continue every 5 minute vital signs and the P.A.R. score; then discharge to a Phase I or Fast Track to Phase II per the following guidelines: * Discharge Patient to appropriate Phase II area if PAR is 8 or greater or return to pre- procedure baseline. The post - procedure orders will be as directed. * If PAR score is less than 8 or not return to pre-procedure baseline then patient will follow Phase I monitoring till PAR is reached for Phase II. The Phase I may be done in procedure room or may call to secure a Phase I area. * If naloxone or flumazenil are used for reversal, hold in Phase I for continued monitoring from when last reversal dose was given for a minimum of 60 minutes or longer pending the nurse and/or physician discretion of patient condition before discharge to Phase II. Please call the Sedation Physician to re-evaluate and complete post-note for discharge to Phase II area. Do NOT discharge from procedure sedation or Phase 1 until post- sedation evaluation note is complete by procedure /sedation MD Sedation Discharge Instructions to be given to the patient at discharge to home.
--- NOTE | 2019-10-11 12:48 | Cardiac Catheterization ---
[facility] Data: Tie Tamper Cardiac Status Clinical evaluation leading to the procedure CAD Presenation: Non STEMI Diagnostic Physicians Name: Chandu Begum MD Closure Device Recommendations: Medical Therapy and/or Counseling Cardiac Cath Procedure Full Procedure Date October 11, 2019 Pre-Procedure Diagnosis Pre-Procedure Diagnosis: Non STEMI AUC Score AUC Score: 8 Post-Procedure Diagnosis Post-Procedure Diagnosis: Mild CAD Procedure(s) Performed Procedure(s) Performed: Coronary Angiography and Left Heart Cath High Density Talc Coater Operator Chandu Begum MD Supervisor Blood Donor Recruiters(s) none Estimated Blood Loss Estimated Blood Loss: 5cc Medication(s) Medication(s): Fentanyl, Heparin, Lidocaine 1%, Nicardipine, Nitroglycerin and V ersed Summary of Findings Procedure performed: Left heart catheterization, coronary angiography Staff director of music: Chandu Begum MD Indication: The patient is a 71-year-old woman who presented with symptoms of chest discomfort and elevated cardiac biomarkers. Procedure in detail: The patient was informed of risks benefits alternatives to the intended procedure. She understood which proceed. She was taken to the cardiac catheterization suite in a fasting state. Conscious sedation was administered per protocol the patient was monitored electrocardiographically throughout today's procedure. The right radial area is prepped and draped in usual sterile fashion. This area was anesthetized using subcutaneous menstruation lidocaine solution. The right radial artery was subsequently accessed using Seldinger technique and sheath was placed over guidewire this site. The sheath was used tilt a passage of the cardiac catheter for left heart catheterization and selective coronary angiography. Images were taken in multiple orthogonal views prior to removal of the catheter. Sheath was also removed and hemostasis achieved at the access site using manual pressure. The patient tolerated procedure well. There were no immediate complications. Equipment used: 5 [place] tiger 4 Coronary angiography: Left main: Left main coronary artery was normal in size and caliber bifurcated normally into the left anterior descending and left circumflex artery. No disease in this vessel Left anterior descending: Left anterior descending was a large transapical vessel. It produced a medium size 1st diagonal branch and a large 2nd diagonal branch. Between D1 and D2 there is approximately 50 percent stenosis. There are no other flow limiting lesions in this vessel. Left circumflex: Left circumflex vessel was nondominant. It produced a small 1st obtuse marginal branch and a very large 2nd obtuse marginal branch. There was evidence of hypertensive arteriopathy but no obstructive lesions in the left circumflex distribution. Right coronary artery: Right coronary was a dominant vessel. There are no obstructive lesions in the right coronary artery. Impression: Nonobstructive coronary disease involving left anterior descending No evidence of acute coronary syndrome Normal left ventricular end-diastolic pressures Right dominant coronary system No evidence of aortic stenosis Hemodynamics Rest Ao:: 110/74 Final Ao: 155/70 LV: 122/0 left ventricular end-diastolic pressure of 2 mmHg Recommendations Recommendations: Medical Therapy and/or Counseling Radiation Exposure (mGy) 455 Contrast (mls) 35 Procedural Complication(s) None Disposition PCU I attest to the content of the Intraoperative Record and any orders documented therein. Any exceptions are noted below. [facility] Card Cath Procedure Codes Cardiac Catheterization Procedure 1: Cardiovascular Cath Procedures: 06070 Coronaries and LHC (+/-LV) Moderate Sedation Procedure 1: Sedation/Anesthesia: 73529 Mod Sedation by the same physician;Init15 Min Child Age 5 & Up Procedure 2: Sedation/Anesthesia: 77607 Mod Sedation by the same physician; Ea [id number] Minutes PG Care Time/CCT Total # of Minutes Spent Total Time Spent with Patient: Total time spent is greater than 50% in coordination of care (as documented) at patient's floor/unit and/or counseling patient:
[2019-10-11] MEDS ORDERED: SODIUM CHLORIDE 0.9% 1000ML 1,000 ML IV SCH (13:00)
--- NOTE | 2019-10-11 13:59 | XCELERA ---
[id number]
[2019-10-11] MEDS: METOPROLOL SUCC 25MG EXT REL TAB PO SCH (17:55)
--- NOTE | 2019-10-11 19:17 | Electrocardiogram Report ---
Test Reason : Blood Pressure : / mmHG Vent. Rate : 054 BPM Atrial Rate : 054 BPM P-R Int : 150 ms QRS Dur : 084 ms QT Int : 502 ms P-R-T Axes : 068 072 044 degrees QTc Int : 476 ms Sinus bradycardia Abnormal ECG When compared with ECG of 12-MAY-2018 13:48, Questionable change in QRS axis ST now depressed in Inferior leads Confirmed by Chandu Bgeum ([id number]) on 10/11/2019 7:17:45 PM Referred By: REFERRED SELF Confirmed By:Diogenes Begum
--- NOTE | 2019-10-11 19:17 | Electrocardiogram Report ---
Test Reason : Blood Pressure : / mmHG Vent. Rate : 053 BPM Atrial Rate : 053 BPM P-R Int : 152 ms QRS Dur : 088 ms QT Int : 512 ms P-R-T Axes : 063 074 070 degrees QTc Int : 480 ms Sinus bradycardia Abnormal ECG When compared with ECG of 11-OCT-2019 03:46, (unconfirmed) ST no longer depressed in Inferior leads T wave inversion no longer evident in Inferior leads Confirmed by Chandu Begum ([id number]) on 10/11/2019 7:16:44 PM Referred By: REFERRED SELF Confirmed By:Diogenes Begum
--- NOTE | 2019-10-11 19:20 | Electrocardiogram Report ---
Test Reason : Blood Pressure : / mmHG Vent. Rate : 067 BPM Atrial Rate : 067 BPM P-R Int : 146 ms QRS Dur : 082 ms QT Int : 462 ms P-R-T Axes : 045 072 070 degrees QTc Int : 488 ms Normal sinus rhythm Nonspecific ST abnormality Abnormal ECG When compared with ECG of 11-OCT-2019 03:46, (unconfirmed) ST no longer depressed in Inferior leads T wave inversion no longer evident in Inferior leads Confirmed by Chandu Begum ([id number]) on 10/11/2019 7:20:30 PM Referred By: REFERRED SELF Confirmed By:Diogenes Begum
--- NOTE | 2019-10-11 19:23 | Electrocardiogram Report ---
Test Reason : Blood Pressure : / mmHG Vent. Rate : 059 BPM Atrial Rate : 059 BPM P-R Int : 132 ms QRS Dur : 088 ms QT Int : 492 ms P-R-T Axes : 066 077 075 degrees QTc Int : 487 ms Sinus bradycardia Abnormal ECG When compared with ECG of 11-OCT-2019 08:56, (unconfirmed) No significant change was found Confirmed by Chandu Begum ([id number]) on 10/11/2019 7:23:53 PM Referred By: REFERRED SELF Confirmed By:Diogenes Begum
[2019-10-11] MEDS ORDERED: ATORVASTATIN 40 MG TAB PO SCH (21:00)
[2019-10-11] MEDS: ATORVASTATIN 40 MG TAB PO SCH (21:23)
[2019-10-12] MEDS: NSS + 20MEQ KCL 20 MEQ/1,000 ML BAG IV SCH (04:14)
[2019-10-12 05:34] LABS: Basophils # (auto) 0.03 K/uL (0-0.2); Basophils % (auto) 0.3 %; Eosinophils # (auto) 0.11 K/uL (0-0.5); Eosinophils % (auto) 1.1 %; Hematocrit (blood only) 43.4 % (37-47); Hemoglobin 14.8 g/dL (12.0-16.0); Immature Granulocytes # (auto) 0.02 K/uL (0.00-0.02); Immature Granulocytes % (auto) 0.2 %; Lymphocytes # (auto) 2.41 K/uL (1.2-3.4); Lymphocytes % (auto) 23.2 %; Mean Corpuscular Hemoglobin 31.8 pg (25-34); Mean Corpuscular Hgb Conc 34.1 g/dL (32-36); Mean Corpuscular Volume 93.3 fL (80-100); Mean Platelet Volume 9.4 fL (7.4-10.4); Monocytes # (auto) 0.98 K/uL (0.11-0.59); Monocytes % (auto) 9.4 %; Neutrophils # (auto) 6.84 K/uL (1.4-6.5); Neutrophils % (auto) 65.8 %; Platelet Count 179 K/uL (130-400); RDW Coefficient of Variation 14.3 % (11.5-14.5); RDW Standard Deviation 48.4 fL (36.4-46.3); Red Blood Count 4.65 M/uL (4.2-5.4); White Blood Count 10.39 K/uL (4.8-10.8)
[2019-10-12 06:06] LABS: Albumin Level 3.3 gm/dl (3.4-5.0); BUN Creatinine Ratio 11.9 (10-20); Calcium 8.2 mg/dl (8.5-10.1); Creatinine Clr Calc Pharmacy 55.6 ml/min; Est GFR (African American) 96.6; Est GFR (Non-African American) 83.4; Magnesium 2.1 mg/dl (1.8-2.4); Partial Thromboplastin Ratio 1.3; Partial Thromboplastin Time 35.9 Seconds (21.0-31.0); Potassium 4.2 mmol/L (3.5-5.1); Prothrombin Time 10.9 Seconds (9.0-12.0)
[2019-10-12 06:10] LABS: Bilirubin,Total 0.5 mg/dl (0.2-1); Globulin 3.4 gm/dl (2.5-4.0); Total Protein 6.7 gm/dl (6.4-8.2)
[2019-10-12] MEDS: LEVOTHYROXINE SODIUM 50 MCG TABLET PO SCH (06:26)
[2019-10-12] MEDS: ASPIRIN 81 MG ECTAB PO SCH (07:48)
[2019-10-12] MEDS: ATORVASTATIN 40 MG TAB PO SCH (07:48)
[2019-10-12] MEDS: CHOLECALCIFEROL 1,000 UNITS 25 MCG TAB PO SCH (07:48)
[2019-10-12] MEDS: PARoxetine HCL 20 MG TAB PO SCH (07:48)
[2019-10-12] MEDS: INSULIN ASPART 100 UNITS/ML 3 ML PEN SC SCH (07:49)
[2019-10-12] MEDS: METOPROLOL SUCC 25MG EXT REL TAB PO SCH (07:49)
--- NOTE | 2019-10-12 08:36 | Discharge Summary ---
Date of Service October 12, 2019 Admission HPI Per Admitting Provider The patient is a 79-year-old female with a past medical history including hyperlipidemia, hypothyroidism, anxiety with depression and osteoporosis. She was awoken from sleep at 3 AM this morning with acute onset of chest pain, that radiated straight through to her back. She has not had any recent travels or sick exposures. She did have a recent stressful event yesterday where her 44-year-old daughter was found to have metastatic breast cancer to liver. The patient initially rated her pain as 10/10, and after initial sublingual nitroglycerin, fentanyl 50 then 25 mcg IV by the ED, and then 1 additional nitroglycerin, the pain is presently 3/10. Initial EKG showed [address] depressions in inferior leads, that resolved with the EKG done 1 hour later. Patient has been started on a heparin drip after a 5000 unit bolus from the ED. I have also added Nitro-Bid 2% to be applied to anterior chest wall every 6 hours, and morphine sulfate 2 mg IV every 30 minutes as needed per protocol. She did receive aspirin 325 mg chewable. Admission Exam Per Admitting Provider The patient is awake, alert and oriented 3, well developed and well nourished, normocephalic and atraumatic, lying in bed and in no acute distress. HEENT--PERRL, EOMI, mucous membranes and oropharynx dry. Neck--supple. No JVD. No bruits. Thyroid normal, trachea midline, no adenopathy. Heart--normal S1 and S2. No murmurs, rubs or gallops. Lungs--clear bilaterally, no respiratory distress, no accessory muscle use. Abdomen--normal bowel sounds and soft. Nontender. Nondistended. Extremities--no cyanosis or clubbing. No edema. Dermatologic--normal skin turgor, normal color, no abnormal lymph nodes, no rash. Neurologic--cranial nerves II through XII grossly intact. Rheumatologic--normal range of motion. Psychiatric--anxious. Principal Diagnosis NSTEMI Discharge Exam General: A&Ox3. NAD. Cooperative. Affect pleasant, nondistressed. HEENT: Atraumatic, normocephalic. Equals equal and reactive to light and accommodation. Pulm: CTAB A&P. -wheezes, -rales, -rhonchi. Symmetrical chest rise. No increase work of breathing. No respiratory distress. Cardiac: RRR, -mrg. Radial pulses intact and symmetrical. No JVD. Abdominal: Nontender, nondistended, soft. BS present. MSK: PT pulses intact bilaterally. Dorsiflexion/plantarflexion at the ankle 5/5 and symmetrical, practice lead strength, elbow flexion 5/5 bilaterally and symmetrical. Discharge Data Allergies Allergy/AdvReac Type Severity Reaction Status Date / Time Sulfa (Sulfonamide Allergy Mild HIVES Verified 10/11/19 04:00 Antibiotics) Consultations 10/11/19 04:55 ED Decision to Admit Stat 10/11/19 06:24 Consult Cardiology Routine Consult Case Management - Discharge Planning Routine Procedures Performed Operation Date: 10/11/19 11:00 Actual Procedures p Cath, Left with Cors and Vent - Shekhar Begum MD s Cineradiography w/Routine Exam - Shekhar Begum MD Ordered Studies 10/11/19 03:50 CT angio chest dissec wo/w con Urgent 10/11/19 12:13 CL Cath Imgs for PACS use only Routine Hospital Course (1) CAD (coronary artery disease): Soraya is a 79-year-old female with a past medical history of degenerative joint disease, hyperlipidemia, hypothyroidism, lupus anticoagulant, and COPD with no history of diabetes who presents with 10/10 chest pain after receiving the news that her daughter has breast cancer and whose pain was reduced to 3/10 with nitro/aspirin/morphine, and to had a elevated troponin on admission to the ED. To do as outpatient: 1. Follow-up with PCP regarding acute anxiety, enrolled with counseling/therapy services 2. Repeat lipid profile and ALT in 6 weeks 3. Follow-up with cardiology, anticipate repeat echo in approximately 1 month NSTEMI On admission Soraya was found to have inferior ST depressions of 1 mm on her EKG. Her troponin was increased to 2.1 in the emergency department, and she had chest pain which slightly improved with nitro/aspirin/morphine. She was placed on a heparin drip. Her troponins continued to uptrend, and she underwent cardiac catheterization which did not show any flow-limiting occlusions and had no indication for stenting. Echocardiogram showed some basal wall motion hypo- /akinesis with a normal ejection fraction. She was seen by cardiology, who recommended the addition of metoprolol, aspirin, and lisinopril. Her symptoms improved over 24 hours, and she was not having any pain at time of discharge. At the onset of her symptoms she had had extreme stress, and had received news that her daughter had metastatic breast cancer and was undergoing a liver biopsy. Stress cardiomyopathy was considered in the differential, but given her troponins and no apical ballooning on echo her presentation and labs were much more consistent with an STEMI and was treated as above. She had a lipid fasting profile which showed reasonably good control with an LDL of approximately 60. Her atorvastatin was increased to 40 mg for plaque stabilization effect. she was discharged with follow-up to her PCP within 1 week, and follow-up to cardiology within 1 month. Anxiety with acute increase in kathy Lira has a history of anxiety on paroxetine. Prior to her onset of chest pain she had received news that her daughter had metastatic breast cancer and was undergoing liver biopsy, and experienced extreme mental stress and anxiety to the news. She was tearful and distressed on admission to the hospital. Her affect improved throughout the course of hospitalization, however patient requested and it was recommended that she seek counseling and psychologic health services as an outpatient. A referral was made during admission, with further follow-up by her PCP. While not indicated for chronic anxiety, due to the severe nature of the patient's symptoms and induction of an STEMI likely due to acute stress and anxiety she was discharged with a short course of lorazepam 0.5 mg for stress until able to establish with services for long-term care. Hypothyroidism Soraya was continued on Synthroid 50 mcg daily during admission, and did not show any signs of thyroid dysregulation. TSH was within normal limits. Total Time Total Time Spent Total Time Spent (In Minutes): I spent 25 minutes in this patient's discharge. Discharge Plan Discharge Items Patient Disposition: Home - Self-Care Reason For Visit: NON-STEMI Discharge Diagnosis: NSTEMI Activity: Per Instructions section Non-emergency contact: Primary Care Provider and [employer]p [employer] Call non-emergency contact if: you have any medication questions, your symptoms worsen, your pain is not controlled, your pain is worsening, your pain is unusual for you and you have a fever Follow-up/Referrals: Tania Brennan MD [Primary Care Provider] - 10/20/19 10:15 am (Please, follow up with Dr. Brennan on WednesdayOctober 19 at 10:15 am. *If you can change this appointment, call the office at [phone].) Shekhar Begum MD [Physician] - 10/18/19 9:30 am (Please, follow up at the [facility] Cardiology Office with Dr. Begum on October 17 at 9:30 am. *The office is located in [address] of [facility], next to [facility]. If you need to change this appointment, call the office at [phone].) Diet: Heart Healthy Addtl Attending Provider Instructions: You are seen in the hospital for chest pain and had an evaluation for a heart attack. An ultrasound of your heart showed some decreased movement in 1 part of your heart, and you had blood markers showing that there was some heart damage but without signs of heart muscle . You had a procedure called catheterization to look at the blood vessels of your heart which did not show a sudden blockage or narrowing. Your pain is improved, and you have had medication changes made as below to help promote healing and protect your heart. You will have follow-up appointments made with your primary care physician and cardiology as noted below. You have had a new medication prescribed, lisinopril. Please take lisinopril 2.5 mg by mouth once daily. If you develop any signs of allergy including wheezing, rash, swelling, difficulty breathing, shortness of breath, or other symptoms such as a dry cough please stop taking this medication and discuss it with your primary care physician. You have been prescribed a new heart medicine, metoprolol. Please take metoprolol succinate 25 mg by mouth once daily. If you experience any side effects including low blood pressure, lightheadedness, dizziness, or feeling like you are going to pass out/passing out, please call your primary care physician to discuss this medication. You have had a change to your dose of atorvastatin. The dose has been increased. Please take atorvastatin 40 mg by mouth once daily. Please take a baby aspirin (aspirin 81 mg) daily. Due to the severe nature of your acute stress and anxiety, you have been prescribed a short course of a benzodiazepine called lorazepam. You may take lorazepam 0.5 mg by mouth as needed up to every 8 hours. This medication may make you sleepy, dizzy, or groggy, and in very high doses can affect breathing. Do not drive while taking this medication. Your PCP will follow up with you regarding anxiety and acute stress. A follow-up appointment is being scheduled for you with your primary care provider, Dr. Brennan. You should be seen within 1 week. She will review her medications, and will also be able to help set you up with counseling services. Referral to start the process of seeing a therapist/counseling service has already been placed, your PCP can help you follow-up on this referral. You should receive a call to confirm your appointment within 48 hours. If you do not receive a call to confirm your appointment, or need to cancel/change your appointment, please call her office at [phone]. A follow-up appointment is being scheduled for you with cardiology. You should be seen in approximately 1 month. If you do not receive a call to confirm your appointment within 48 hours, please call [phone] and asked to be transferred to cardiology to confirm your appointment and follow-up. You will need to have follow-up blood work in approximately 6 weeks. You should have a recheck of your lipid profile and a lab called and ALT checked. Your primary care provider should order these, and follow-up with you regarding the results. If you develop any new or worsening symptoms including fever, chills, sweats, chest pain, chest pressure, difficulty breathing, uncontrolled nausea/vomiting, rash, wheezing, passing out or nearly passing out, bleeding, black/bloody bowel movements, or other new or concerning symptoms please call your primary care physician at [phone], or call [phone] for re-evaluation in the emergency department if you are very concerned. Pending Studies at Discharge: No Studies:: Will need recheck of ALT and lipids in 6 weeks Stand-Alone Forms: My [facility] How do you roll?, Smoking Cessation Medications and DC Order Prescriptions: New atorvastatin 40 mg Tablet 40 mg PO QAM 30 Days Qty: 30 RF: 0 aspirin 81 mg Tablet,Delayed Release (Dr/Ec) 81 mg PO QAM 30 Days Qty: 30 RF: 0 metoprolol succinate 25 mg Tablet Extended Release 24 Hr 25 mg PO QAM 30 Days Qty: 30 RF: 0 lisinopril 2.5 mg Tablet 2.5 mg PO QAM 30 Days Qty: 30 RF: 0 lorazepam 0.5 mg tablet 0.5 mg PO Q8H PRN (Reason: anxiety) Qty: 10 RF: 0 Continued paroxetine HCl [Paxil] 40 mg tablet 40 mg PO DAILY Qty: 90 RF: 1 alendronate 70 mg tablet 70 mg PO WK Qty: 12 RF: 1 levothyroxine 50 mcg tablet 50 mcg PO DAILY Qty: 90 RF: 1 cholecalciferol (vitamin D3) [Vitamin D3] 1,000 unit Tablet 1,000 unit PO BID RF: 0 Discontinued atorvastatin 20 mg tablet 20 mg PO HS Qty: 90 RF: 1 Discharge Orders: Discharge Order (Routine); Ordered 10/12/19 Ordered By: Praful Bhatt/Other Patient Handouts: Atorvastatin tablets, Metoprolol extended- release capsules, Lisinopril tablets, Aspirin ASA oral tablets Admission Data Admit Date/Time: 10/11/19 05:13 Attending Provider: Melvin Solitario Admit Provider: Hans Martinez Primary Care Provider: Tania Brennan Other Providers: Hans Martinez ; Shekhar Escobedo Other Interventions: Discharge Summary Assessment (RN) Last Done: 10/12/19 10:43 DC Date/Time DO NOT enter until pt leaves facility: 10/12/19 12:47 Supervising Physician Co-Signing Physician Notes I also saw the patient and confirmed flores portions of the history and physical examination. Upon our examination this morning, the patient is seated in bed reading. She appears much more relaxed than yesterday. She denies any chest pain or shortness of breath. Reviewed medications and recommended follow-up as detailed above. The patient was comfortable with the discharge plan and all questions were answered. Resident Activity Tracking Resident Involvement: Resident Care Provided Care Provided: Adult Hospital Medicine
--- NOTE | 2019-10-12 09:52 | Cardiology Progress Note ---
Date of Service October 12, 2019 Assessment & Plan (1) Chest pain, radiating: - Given this patient's presumed history of coronary disease from a positive stress test in 2011 - followed by similar chest pains 2 years ago but a negative nuclear study - alongside recent and significant emotional stress, serially positive troponins since yesterday AM (8.9 at 0640hr < and 2.18 at 0330hr), and an initial EKG demonstrating ST-depressions in the inferior plane, there was an initial concern for ACS-NSTEMI vs. stress cardiomyopathy. Her echocardiogram demonstrated some mild anterior wall motion abnormalities with a normal EF; cardiac catheterization yesterday did not reveal ACS, only mild nonobstructive coronary disease involving the left anterior descending artery. EKG repeated this morning continued to reveal no further ST depressions or other major changes. - Recommend f/u with PCP for continued monitoring and management of symptoms - BP, pulse, SpO2, and physical exam continue to be WNL and the patient continues to be stable. - CT-Chest performed in ED was negative for acute pulmonary/pulmonary vasculature or aortic process, including PE / dissection - Recommend cardiac catheterization for further evaluation and management of ACS. Risks, benefits, and alternatives were discussed with the patient by the attending physician. - s/p ASA 325, UFH 5000U bolus, 2x SL nitroglycerin in ED - Initial HR between 50-60s - as such, beta-faisal therapy not initiated - Continue SL nitroglycerin every 5min PRN for chest pain - Nitrobid paste q6h discontinued per findings above - UFH 1000U/h discontinued per the findings above (2) CAD (coronary artery disease): - See chest pain note above Present on Admission?: Yes (3) Hyperlipidemia: - Continue atorvastatin 20mg PO daily Admission and Anticipated Discharge Date Admission Date: October 11, 2019 Supervising Physician Co-Signing Physician Notes She has had resolution of her chest pain. Cardiac biomarkers are trending downwards. Overall LV function appears normal. Coronary angiography did not demonstrate any acute coronary syndrome. She appears to be safe for discharge with beta-blockade and follow-up in our outpatient clinic. Subjective Visited patient at the bedside this morning. NAEO. Reports that her chest pain went away earlier this AM and hasn't had any since. Reports feeling well overall. Denies any chest pressure, shortness of breath, nausea, or vomiting. Review of Systems Constitutional: no fever, no chills and no sweats Respiratory: no cough and no dyspnea Cardiovascular: no chest pain, no chest pain at rest, no radiating jaw, neck or arm pain, no dyspnea and no orthopnea Gastrointestinal: no nausea and no vomiting Psychiatric: as per Subjective / HPI Physical Exam Constitutional: WD/WN, vitals as above no acute distress Respiratory: normal respiratory effort, lungs clear to auscultation Cardiovascular: Rate/Rhythm: regular rate and regular rhythm Heart Sounds: normal S1 and normal S2 Vessels: normal peripheral pulses; no JVD Extremities: no calf tenderness, no pedal edema and no edema Skin: no rashes, warm and dry Psychiatric: A+Ox3, euthymic affect Affect: euthymic affect Results & Data ([facility]) Vital Signs (Past 12 Hours) Vital Signs Temp Pulse Pulse Resp BP Pulse Ox 10/12/19 07:48 36.8 C 72 18 142/63 H 96 10/12/19 07:29 70 10/12/19 00:00 62 PG Care Time/CCT Total # of Minutes Spent Total Time Spent with Patient: Total time spent is greater than 50% in coordination of care (as documented) at patient's floor/unit and/or counseling patient: Coding Level of Care Code None Diagnoses Chest pain, radiating R07.89 CAD (coronary artery disease) I25.10 Hyperlipidemia E78.5 Resident Activity Tracking Resident Involvement: Resident Care Provided Care Provided: Adult Hospital Medicine
[2019-10-12 12:00] LABS: Estimated Average Glucose 114 mg/dl; Hemoglobin A1C 5.6 % (4.5-5.6)
--- NOTE | 2019-10-12 18:59 | Electrocardiogram Report ---
Test Reason : Blood Pressure : / mmHG Vent. Rate : 065 BPM Atrial Rate : 065 BPM P-R Int : 140 ms QRS Dur : 082 ms QT Int : 454 ms P-R-T Axes : 045 077 101 degrees QTc Int : 472 ms Normal sinus rhythm Lateral infarct , age undetermined Abnormal ECG When compared with ECG of 11-OCT-2019 14:17, No significant change was found Confirmed by Chandu Begum ([id number]) on 10/12/2019 6:59:05 PM Referred By: REFERRED SELF Confirmed By:Diogenes Begum
== END 2019-10-12 12:47 | disposition home or self-care (01) | DRG 281 ==
LOC: ED 03:42 → SUATTDRO 05:13 → 1E 05:13 → 2S 10-12 06:42